=== PATIENT | female | born 1940 | race Caucasian/White ===

== ENCOUNTER 2019-05-25 19:50 | Emergency (ER) | payer MEDICARE, OTHER, SELFPAY ==
[2019-05-25 20:06] VITALS: BP 133/69; PULSE 71; RESP 15; TEMP 36.9; O2SAT 98; BMI 25.7
--- NOTE | 2019-05-25 20:08 | DI.RAD.S_ITS ---
PROCEDURE: XR KNEE LT 3V INDICATIONS: fall onto knees, joint line pain TECHNIQUE: 3 views of the knee were acquired. COMPARISON: [facility], CR, XR KNEE RT 3V, 05/25/2019, 20:04. FINDINGS: Bones: Diffuse osteopenia. No fractures or dislocations. No suspicious bony lesions. Soft tissues: Small joint effusion. No suspicious soft tissue calcifications. IMPRESSION: Diffuse osteopenia. No acute fracture or dislocation. Small joint effusion. If there is persistent clinical concern for occult fracture given adequate mechanism of injury, consider repeat imaging in 10-14 days. Dictated by: Jf rPice M.D. on 05/25/2019 at 20:43 Approved by: Jf Price M.D. on 05/25/2019 at 20:45
--- NOTE | 2019-05-25 20:08 | DI.RAD.S_ITS ---
PROCEDURE: XR KNEE RT 3V INDICATIONS: fall onto knees, joint line pain TECHNIQUE: 3 views of the knee were acquired. COMPARISON: None. FINDINGS: Bones: Diffuse osteopenia. No fractures or dislocations. No suspicious bony lesions. Soft tissues: No joint effusion. No suspicious soft tissue calcifications. IMPRESSION: Diffuse osteopenia. No acute fracture or dislocation. If there is persistent clinical concern for occult fracture given adequate mechanism of injury, consider repeat imaging in 10-14 days. Dictated by: Jf Price M.D. on 05/25/2019 at 20:42 Approved by: Jf Price M.D. on 05/25/2019 at 20:43
--- NOTE | 2019-05-25 20:11 | ED.FALL ---
HPI - Fall <Ivone Toth PA-C - Last Filed: 05/25/19 21:13> General Chief Complaint: Fall Stated Complaint: bilateral knee pain, mouth pain s/p GLF Time Seen by Provider: 05/25/19 20:08 Source: patient Mode of arrival: Wheelchair Limitations: no limitations History of Present Illness HPI Narrative: This 79-year-old female tripped on a carpet strip about an hour and a half prior to arrival. She pitched forward, falling onto both of her knees and hitting her front teeth (1 came out, another is loose). She denies any other injury, denies hitting her head, LOC, neck pain, other extremity pain. Her son was present and concurs with this. She states that her knees hurt right away and great difficulty bearing any weight due to the pain (she came in to the room in a wheelchair). She notes that she had some leftover Dilaudid following hip replacement but gave this away. Typically if she takes oral pain medication it is this or morphine, unable to tolerate hydrocodone or oxycodone which seemed to cause mental status changes. Related Data Home Medications Medication Instructions Recorded Confirmed ASPIRIN (Aspir-Low) 81 mg PO Q DAY #0 06/15/12 02/24/19 carvedilol [Coreg] 12.5 mg PO BID #0 06/15/12 02/24/19 losartan [Cozaar] 50 mg PO QDAY #0 06/15/12 02/24/19 rosuvastatin [Crestor] 40 mg PO QDAY #0 06/15/12 02/24/19 lorazepam [Ativan] 0.5 mg PO PRN #0 12/11/12 02/24/19 Previous Rx's Medication Instructions Recorded hydrocortisone 1 % topical cream 1 applictn TOP BID PRN #28 gram 02/24/19 morphine 15 mg PO Q8H #8 tab 05/25/19 Allergies Allergy/AdvReac Type Severity Reaction Status Date / Time azithromycin [AZITHROMYCIN] Allergy Unknown Verified 05/25/19 20:06 codeine [CODEINE] Allergy Unknown Verified 05/25/19 20:06 ADHESIVE TAPE Allergy Mild Uncoded 02/24/19 12:10 Review of Systems <Ivone Toth PA-C - Last Filed: 05/25/19 21:13> Review of Systems ROS Unobtainable: All systems reviewed & are unremarkable except as noted in HPI and below Patient History <Ivone Toth PA-C - Last Filed: 05/25/19 21:13> Medical History (Updated 05/25/19 @ 21:08 by Ivone Toth PA-C) CAD (coronary artery disease) (Chronic) HTN (hypertension) (Chronic) Hyperlipidemia (Chronic) Osteoarthritis (Chronic) Venous insufficiency of both lower extremities (Chronic) Surgical History (Updated 05/25/19 @ 20:18 by Ivone Toth PA-C) Hx of heart artery stent (Resolved) Status post total hip replacement, right (Resolved) Social History (Updated 05/25/19 @ 20:17 by Ivone Toth PA-C) Smoking Status: Unknown if ever smoked Smoking Status: Unknown if ever smoked alcohol intake frequency: holidays/special occasions only Substance Use Type: does not use Exam <Ivone Toth PA-C - Last Filed: 05/25/19 21:13> Narrative Exam Narrative: GENERAL APPEARANCE: Patient sitting comfortably on stretcher, in no distress. HEENT: No facial or scalp lesions or ecchymoses, EOMI, right central incisor is mostly broken, partial to that the base still visible, oozing from that site, L. incisor loose, partially avulsed LUNGS: Clear to auscultation bilaterally. HEART: Regular rate and rhythm without murmur, normal S1, S2, no S3 or S4. EXTREMITIES: mild pedal edema, + varicosities, pedal pulses intact, no cyanosis NEUROLOGIC: Alert and oriented, normal speech and coordination. MS: Trace effusion bilateral knees, tender across the joint lines. Full flexion/extension with tenderness at endpoints. Full active motion of the ankles without tenderness. No tenderness over the tib-fib areas, ankles. No tenderness over the hips or thighs. DERM: eccymoses bilateral knees Initial Vital Signs Initial Vital Signs: Vital Signs Temperature 98.5 F 05/25/19 20:06 Pulse Rate 71 05/25/19 20:06 Respiratory Rate 15 05/25/19 20:06 Blood Pressure 133/69 05/25/19 20:06 Pulse Oximetry 98 05/25/19 20:06 <Alyx Orr DO - Last Filed: 05/26/19 00:24> Initial Vital Signs Initial Vital Signs: Vital Signs Temperature 98.5 F 05/25/19 20:06 Pulse Rate 71 05/25/19 20:06 Respiratory Rate 15 05/25/19 20:06 Blood Pressure 133/69 05/25/19 20:06 Pulse Oximetry 98 05/25/19 20:06 Course <Ivone Toth PA-C - Last Filed: 05/25/19 21:13> Orders Ordered: ED Orders 05/25/19 20:08 XR knee LT 3V Stat XR knee RT 3V Stat Discontinued Medications Morphine Sulfate (Morphine Ir) 30 mg PO Q6HR PRN PRN Reason: Pain, Severe (7-10) Last Admin: 05/25/19 21:13 Dose: 30 mg Documented by: REGINE Vital Signs Vital signs: Vital Signs - 8 hr 05/25/19 20:06 05/25/19 21:25 Temperature 98.5 F Pulse Rate 71 73 Respiratory Rate 15 16 Blood Pressure 133/69 113/96 H Pulse Oximetry 98 99 <Alyx Orr DO - Last Filed: 05/26/19 00:24> Orders Ordered: ED Orders 05/25/19 20:08 XR knee LT 3V Stat XR knee RT 3V Stat Discontinued Medications Morphine Sulfate (Morphine Ir) 30 mg PO Q6HR PRN PRN Reason: Pain, Severe (7-10) Last Admin: 05/25/19 21:13 Dose: 30 mg Documented by: REGINE Vital Signs Vital signs: Vital Signs - 8 hr 05/25/19 20:06 05/25/19 21:25 Temperature 98.5 F Pulse Rate 71 73 Respiratory Rate 15 16 Blood Pressure 133/69 113/96 H Pulse Oximetry 98 99 MDM - Fall <Ivone Toth PA-C - Last Filed: 05/25/19 21:13> Imaging Data R. and L. knees: Radiologist's impression: [address] [address] XRay Report Signed Patient: Meka Shahid MMR#: [id number] : 1940Acct:[id number] Age/Sex: 79 / FDate of Service: 05/25/19 Loc: ED Accession Number: [id number] Procedure: XR knee RT 3V Ordering Provider: Ivone Toth P.A-C PROCEDURE: XR KNEE RT 3V INDICATIONS: fall onto knees, joint line pain TECHNIQUE: 3 views of the knee were acquired. COMPARISON: None. FINDINGS: Bones: Diffuse osteopenia. No fractures or dislocations. No suspicious bony lesions. Soft tissues: No joint effusion. No suspicious soft tissue calcifications. IMPRESSION: Diffuse osteopenia. No acute fracture or dislocation. If there is persistent clinical concern for occult fracture given adequate mechanism of injury, consider repeat imaging in 10-14 days. Dictated by: Jf Price M.D. on 05/25/2019 at 20:42 Approved by: Jf Price M.D. on 05/25/2019 at 20:43 Meka Shahid 79 F [address] [address] XRay Report Signed Patient: Meka Shahid MMR#: [id number] : 1940Acct:[id number] Age/Sex: 79 / FDate of Service: 05/25/19 Loc: ED Accession Number: [id number] Procedure: XR knee LT 3V Ordering Provider: Ivone Toth P.A-C PROCEDURE: XR KNEE LT 3V INDICATIONS: fall onto knees, joint line pain TECHNIQUE: 3 views of the knee were acquired. COMPARISON: [facility], , XR KNEE RT 3V, 05/25/2019, 20:04. FINDINGS: Bones: Diffuse osteopenia. No fractures or dislocations. No suspicious bony lesions. Soft tissues: Small joint effusion. No suspicious soft tissue calcifications. IMPRESSION: Diffuse osteopenia. No acute fracture or dislocation. Small joint effusion. If there is persistent clinical concern for occult fracture given adequate mechanism of injury, consider repeat imaging in 10-14 days. Dictated by: Jf Price M.D. on 05/25/2019 at 20:43 Approved by: Jf Price M.D. on 05/25/2019 at 20:45 Discharge Plan Departure Patient Disposition: Home Clinical Impression: Contusion of right knee, initial encounter, Contusion of left knee, initial encounter Discharge Date/Time: 05/25/19 21:25 Instructions: DI for Knee Pain Activity Restrictions/Additional Instructions: Please rest your knees. Use the Jorge wraps as needed for comfort, and use your walker for support. Gentle walking on flat ground is okay, and you can gradually increase this as you feel better. I have given you a prescription for a little bit of morphine should you need any more pain medication over the next day or 2. You do not have to fill the prescription if you are better tomorrow. Please use ice, and you can use topical rubs or lidocaine patches [id number] as well. As we talked about, you need to have repeat x-ray in 7-10 days if not feeling better. You should be seen right away if any acutely worsening symptoms. I suspect that your partially broken tooth may not be fixable, but keep it in milk on ice for tonight just in case it is helpful for the dentist. Avoid manipulating the tooth that is partially attached, as I think the dentist may be able to fix that. Please call 1st thing tomorrow morning and let them know you are in the emergency room and we advised you to be seen in the morning to see if the tooth could be fixed. Keep pressure on the bleeding area with a little gauze. Please call the hospital enrollment management coordinator tomorrow as well, at [phone], and let them know you need help with finding a local primary care provider. Let them know you were seen in the ED and we would like you to have a follow-up next week. You can also check with [facility] if you wish since you are already established with Dr. Nguyễn Prescriptions: New morphine 30 mg tablet 15 mg PO Q8H Qty: 8 RF: 0 No Action hydrocortisone [Anti-Itch (HC)] 1 % cream 1 applictn TOP BID PRN (Reason: rash) Qty: 28 RF: 0 losartan [Cozaar] 50 MG tablet 50 mg PO QDAY Qty: 0 RF: 0 carvedilol [Coreg] 12.5 MG tablet 12.5 mg PO BID Qty: 0 RF: 0 rosuvastatin [Crestor] 40 MG tablet 40 mg PO QDAY Qty: 0 RF: 0 ASPIRIN (Aspir-Low) 81 mg PO Q DAY Qty: 0 RF: 0 lorazepam [Ativan] 0.5 MG tablet 0.5 mg PO PRN Qty: 0 RF: 0 Referrals: Jon Aggarwal [Other] Reyes Nguyễn MD [Physician] -
[2019-05-25] MEDS: MORPHINE IR 30 MG PO (21:13)
[2019-05-25 21:25] VITALS: BP 113/96; PULSE 73; RESP 16; O2SAT 99
== END 2019-05-25 21:25 | disposition home or self-care (01) ==
PROVIDERS: Emergency Provider Internal Medicine; Family Provider Orthopaedic Surgery; PCP Orthopaedic Surgery
DX: S80.01XA Contusion of right knee, initial encounter (principal); M25.562 Pain in left knee; S02.5XXA Fracture of tooth (traumatic), initial encounter for closed fracture; K08.89 Other specified disorders of teeth and supporting structures; W18.30XA Fall on same level, unspecified, initial encounter
CPT/HCPCS: 73562; 99283

== ENCOUNTER → 2019-08-20 10:39 | Outpatient (CLI) | payer MEDICARE, OTHER, SELFPAY ==
[2019-08-20 11:37] LABS: Alanine Aminotransferase 15 IU/L (<35); Albumin 4.4 g/dL (3.5-5.0); Albumin Globulin Ratio 1.5 (1.0-2.8); Alkaline Phosphatase 96 U/L (38-126); Aspartate Aminotransferase 27 IU/L (14-36); BUN Creatinine Ratio 12.3 (6-22); Bilirubin Total 0.8 mg/dL (0.2-1.3); Blood Urea Nitrogen 10 mg/dL (7-17); Calcium 9.7 mg/dL (8.4-10.2); Carbon Dioxide 28 mmol/L (22-32); Chloride 97 mmol/L (98-107); Cholesterol 168 mg/dL (140-199); Estimated Glomerular Filt Rate > 60.0 mL/min (>60); Globulin 2.9 g/dL (1.7-4.1); Glucose 99 mg/dL (80-110); HDL Cholesterol 80 mg/dL (40-60); HEMOLYSIS < 15 (0-50); LDL Cholesterol Calculated 67 mg/dL (<100); Potassium 4.8 mmol/L (3.4-5.1); Sodium 133 mmol/L (137-145); Total Protein 7.3 g/dL (6.3-8.2); Triglycerides 104 mg/dL (35-150)
[2019-08-20 11:54] LABS: Vitamin D 25 Hydroxy (D3) 59.5 ng/mL (30.0-100.0)
== END ==
PROVIDERS: Family Provider Orthopaedic Surgery; PCP Family Medicine; Referring Provider Family Medicine; Visit Provider Family Medicine
DX: E55.9 Vitamin D deficiency, unspecified (principal); I10 Essential (primary) hypertension; E78.00 Pure hypercholesterolemia, unspecified
CPT/HCPCS: 36415; 80053; 80061; 82306

== ENCOUNTER → 2020-04-04 14:48 | Outpatient (CLI) | payer MEDICARE, OTHER, SELFPAY ==
--- NOTE | 2020-04-04 14:52 | DI.ECHO.S_ITS ---
[place] [facility]---------+ [facility] +---------+ : : [address] : : : : [phone] : : : : Phone: [phone]---------+ Echocardiogram Report + + :Name: GOMEZ HOLLINS Study Date: 04/04/2020 Height: 61 in : :[facility] Weight: 143 lb : : Gender: Female BSA: 1.6 m2 : :: 1940 Age: 80 yrs BP: 146/67 mmHg: :Reason For Study: LOCALIZED EDEMA : :Ordering Physician: GIAN, : :AJIT Performed By: Haritha Merida : :Referring: AJIT SPRINGER : + + Interpretation Summary The left ventricle is normal in size and wall thickness. The ejection fraction is estimated to be 60-65%. The right ventricle is normal in size and function. There is mild mitral regurgitation. The IVC is of normal diameter and collapses greater than 50% with a sniff. This suggests a low right atrial pressure of 3 mm Hg. Procedure: A two-dimensional transthoracic echocardiogram with color flow and Doppler was performed. The study quality was technically adequate. There is no prior echocardiogram noted for this patient. The patient was in sinus bradycardia with heart rates between 52-57 bpm during the exam. Left Ventricle: The left ventricle is normal in size and wall thickness. There is no thrombus. The ejection fraction is estimated to be 60-65%. There are no focal wall motion abnormalities. Diastolic parameters suggest a relaxation abnormality of the left ventricle, consistent with probable normal filling pressures. Right Ventricle: The right ventricle is normal in size and function. Atria: The left atrial size is normal. Right atrial size is normal. There is no Doppler evidence for an interatrial shunt. Mitral Valve: There is mild mitral annular calcification. There is mild mitral regurgitation. The mitral regurgitant jet is eccentrically directed. Aortic Valve: The aortic valve is trileaflet. The aortic valve opens well. The aortic valve is slightly calcified. There is no aortic valve stenosis. No aortic regurgitation is present. Tricuspid Valve: The tricuspid valve is normal in structure and function. There is trace tricuspid regurgitation. Pulmonary artery pressures cannot be estimated because of the lack of a measurable TR jet velocity but the IVC suggests a CVP of around 3 mmHg. Pulmonic Valve: The pulmonic valve leaflets are thin and pliable; valve motion is normal. There is no pulmonic valvular regurgitation. Great Vessels: The aortic root is normal size. The dimensions of the ascending aorta are normal. The IVC is of normal diameter and collapses greater than 50% with a sniff. This suggests a low right atrial pressure of 3 mm Hg. Pericardium/ Pleura There is no pericardial effusion. There is no pleural effusion. MMode/2D Measurements & Calculations LVIDd: 4.2 cm LVOT diam: 2.0 cm LVIDs: 3.1 cm Ao root diam: 3.2 cm FS: 27.1 % asc Aorta Diam: 2.6 cm EPSS: 0.54 cm Ao Arch Diam (Prox Trans): 2.3 cm IVSd: 0.90 cm LVPWd: 0.89 cm LV marin. diameter/BSA (cm/m^2): 2.6 LV sys. diameter/BSA (cm/m^2): 1.9 LA A2 area: 16.9 cm2 RA long axis: 4.8 cm LA A4 area: 14.6 cm2 RA area: 13.6 cm2 LA length (vol): 5.3 cm RA vol: 32.5 ml LA vol: 39.8 ml RA : 19.8 ml/m2 LA vol index: 24.3 ml/m2 IVC diam: 1.4 cm RVD1 (basal): 2.9 cm TAPSE: 2.3 cm Doppler Measurements & Calculations Ao V2 max: 142.4 cm/sec LVOT Max Bhaskar: 77.4 cm/sec Ao V2 mean: 96.0 cm/sec LV V1 max P.4 mmHg Ao max P.1 mmHg LV V1 VTI: 21.0 cm Ao mean P.2 mmHg SILVERIO(I,D): 2.0 cm2 Ao V2 VTI: 33.6 cm SILVERIO(V,D): 1.7 cm2 sev ratio: 0.62 SILVERIO indexed to BSA (cm^2/m^2): 1.2 MV E max bhaskar: 83.8 cm/sec PA V2 max: 67.5 cm/sec MV A max bhaskar: 88.0 cm/sec PA V2 mean: 41.4 cm/sec MV E/A: 0.95 PA mean P.82 mmHg Med Peak E' Bhaskar: 6.8 cm/sec PA pr(Accel): 19.1 mmHg E/E' med: 12.3 Lat Peak E' Bhaskar: 8.4 cm/sec E/E' lat: 10.0 E/e' average: 11.1 MV dec time: 0.23 sec SV(LVOT): 66.5 ml Reading Physician:05:51 PM
== END ==
PROVIDERS: Family Provider Orthopaedic Surgery; PCP Family Medicine; Referring Provider Internal Medicine Cardiovascular Disease; Visit Provider Internal Medicine Cardiovascular Disease
DX: I34.0 Nonrheumatic mitral (valve) insufficiency (principal)
CPT/HCPCS: 93306

== ENCOUNTER → 2020-04-29 13:03 | Outpatient (CLI) | payer MEDICARE, OTHER, SELFPAY ==
[2020-04-29 15:04] LABS: COVID19 -Nasal RAPID Negative (Negative)
== END ==
PROVIDERS: Family Provider Orthopaedic Surgery; PCP Family Medicine; Visit Provider Physician Assistant
DX: Z11.59 Encounter for screening for other viral diseases (principal)
CPT/HCPCS: 87635

== ENCOUNTER → 2020-05-02 10:06 | Outpatient (CLI) | payer MEDICARE, OTHER, SELFPAY ==
--- NOTE | 2020-05-02 18:27 | DI.NM.S_ITS ---
DATE OF SERVICE: PROCEDURE: Pharmacological perfusion study. DATE: 05/02/2020. INDICATIONS: Coronary artery disease with history of LAD and RCA stenting, hypertension, hyperlipidemia. RADIOPHARMACEUTICAL: 25.5 millicurie of technetium-99m Myoview IV was injected at stress and 11.9 millicurie technetium-99m Myoview IV was injected at rest. CARDIAC STRESS: The patient underwent Lexiscan perfusion study under the supervision of an attending staff as per standard protocol. She remained hemodynamically stable. No anginal symptoms. Baseline EKG revealed sinus rhythm. During stress, no convincing ischemic changes or significant arrhythmias seen. RAW DATA: There was breast shadow seen. GATED STUDY: Stress LV ejection fraction 84%. Resting end-diastolic volume 57 mL. No obvious wall motion abnormalities. TID ratio 1.0, which is within normal limits. Lung/heart ratio 0.22, which is within normal limits. MYOCARDIAL PERFUSION SCAN: Stress supine and resting supine images revealed minimally decreased perfusion of distal anterior wall, which got significantly improved during prone images. There was no convincing ischemia or infarction pattern seen. CONCLUSION: I will call this study likely a normal myocardial perfusion study with evidence of breast tissue attenuation artifact which got improved during prone images. Overall, this is a low-risk myocardial perfusion scan. Meka Shahid - SAFIA/shannon/danie doc#: [id number]/job#: [id number] dd: 05/02/2020 17:41:00 dt: 05/02/2020 18:14:00 DICTATING MD/COPIES TO: Reyes Nguyễn MD COPIES MNE: CHELI;
== END ==
PROVIDERS: Family Provider Orthopaedic Surgery; PCP Family Medicine; Referring Provider Internal Medicine Cardiovascular Disease; Visit Provider Internal Medicine Cardiovascular Disease
DX: I25.10 Atherosclerotic heart disease of native coronary artery without angina pectoris (principal); I10 Essential (primary) hypertension; E78.5 Hyperlipidemia, unspecified; Z95.5 Presence of coronary angioplasty implant and graft
CPT/HCPCS: 78452; 93017; A9502; J2785

== ENCOUNTER → 2020-07-03 10:21 | Outpatient (CLI) | payer MEDICARE, OTHER, SELFPAY ==
--- NOTE | 2020-07-03 10:23 | DI.RAD.S_ITS ---
PROCEDURE: XR LUMBAR SPINE 2-3V INDICATIONS: Progression localized lower back pain over the past few weeks TECHNIQUE: 3 views of the lumbar spine were acquired. COMPARISON: None. FINDINGS: Bones: Diffuse osteopenia. Multilevel degenerative endplate sclerosis and spurring. Diffuse facet arthropathy. Grade 1 anterolisthesis of L4 on L5. Severe narrowing of the L3-L4 disc space. Moderate narrowing of the L4-L5 and L5-S1 disc space. Mild dextrocurvature. Severe left hip joint degeneration with [id number] appearance. Right hip arthroplasty partially visualized. Soft tissues: Overlying bowel gas pattern is normal. No suspicious soft tissue calcifications. Scattered vascular calcifications seen in the aorta. IMPRESSION: Lumbar spondylosis and facet arthropathy. Multilevel spondylolisthesis as above. Mild dextrocurvature Dictated by: Casa Mackay M.D. on 07/03/2020 at 12:37 Approved by: Casa Mackay M.D. on 07/03/2020 at 12:39
== END ==
PROVIDERS: Family Provider Orthopaedic Surgery; PCP Family Medicine; Referring Provider Family Medicine; Visit Provider Family Medicine
DX: M47.816 Spondylosis without myelopathy or radiculopathy, lumbar region (principal)
CPT/HCPCS: 72100

== ENCOUNTER 2020-09-07 10:30 | Outpatient (RCR) | payer MEDICARE, OTHER, SELFPAY ==
--- NOTE | 2020-08-23 12:00 | PT.OPPOC ---
Physical, Occupational & Speech Therapy At [facility] Current Diagnoses Other chronic pain (08/23/20) Low back pain (08/23/20) Difficulty in walking, not elsewhere classified (08/23/20) Visit Care Team Role Provider Type Valentín Luis DO Attending Provider Physician Primary Care Provider Referring Provider Specialty: [facility] Address: [address] [place] [address], [facility] Email: [email or web address] Plan Of Care PT-OP-T Assessment and Plan Start: 08/23/20 09:00 Freq: Status: Active Protocol: Document 08/23/20 12:00 AW (Rec: 08/24/20 11:49 AW [id number]) Physical Therapy Assessment Rehab Potential Rehabilitation Potential Good Evaluation Complexity Number of Personal Factors/Comorbidities 1-2 Number of Body Systems Impaired 1-2 Clinical Presentation at Evaluation Stable Impairments Impairments Activity Tolerance,Balance, Edema,Functional Activities, Functional Mobility,Gait,Pain, Posture,ROM,Soft Tissue Mobility,Strength,Transfers Goals Three Impairment standing tolerance Short Term Goal (STG) Pt will tolerate standing 15 minutes without increase in baseline pain. STG Duration 6 weeks - 10/04/20 [employer] Goal (LTG) Pt will cook helper fruit with >15 minutes standing without increase in baseline pain. LTG Duration 3 months - 11/23/20 Two Impairment strength Short Term Goal (STG) Pt will improve hip extension strength to 4/5 bilaterally STG Duration 6 weeks - 10/04/20 [employer] Goal (LTG) Pt will have 4+/5 hip extension strength for improved gait mechanics. LTG Duration 3 months - 11/23/20 One Impairment Pt lacks HEP Short Term Goal (STG) Pt will be independent with HEP for support of therapy services provided in clinic STG Duration 6 weeks - 10/04/20 [employer] Goal (LTG) Pt will participate in home walking program to maintain therapy gains LTG Duration 3 months - 11/23/20 Assessment Summary Assessment Meka is an 80 yo woman seen in outpatient PT with complaints of low back pain and left hip pain. She has a history of injurious falls but reports no falls in the past one year. Pt presents with hip range of motion and strength deficits which are affecting her gait and increasing her fall risk. She will benefit from skilled PT to address these deficits for pain reduction and improvement in her ability to ambulate safely, reducing her risk of falls. Physical Therapy Plan Frequency and Duration Frequency of Treatment 2x/Week Duration of Treatment 3 months Plan of Care Start Date 08/23/20 Plan of Care End Date 11/23/20 Therapeutic Interventions Therapeutic Interventions Balance Training,Gait Training ,Home Exercise Program,Joint Mobilizations,Manual Therapy, Neuromuscular Re-education, Patient/Caregiver Education, Self-Care/Home Management,Soft Tissue Mobilization,Taping, Therapeutic Activities, Therapeutic Exercises Modalities Cold Pack/Ice Massage,Electric Stimulation,Hot Packs Next Visit Focus/Plan Next Note Type Treatment Note Next Visit Plan assess balance and gait speed with standardized testing; consider TUG; hip mobility and strength Plan of Care Dates Plan of Care Start Date 08/23/20 Plan of Care End Date 11/23/20 Electronically Signed by: Mini Jean PT 08/24/20 [id number] Please Sign and Return: I have reviewed this Plan of Care and certify that the skilled therapy services above are required to meet the patient?s needs. Physician Signature Date Printed Name and Credentials Clinical Instructor Signature Printed Name and Credentials
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
== END 2021-01-25 07:53 | disposition home or self-care (01) ==
LOC: PHYS 10:30
PROVIDERS: PCP Family Medicine; Referring Provider Family Medicine; Visit Provider Family Medicine
DX: M54.5 Low back pain (principal); G89.29 Other chronic pain; R26.2 Difficulty in walking, not elsewhere classified
CPT/HCPCS: 97010; 97110; 97140; 97161

== ENCOUNTER 2020-09-09 12:16 | Emergency (ER) | payer MEDICARE, OTHER, SELFPAY ==
[2020-09-09 12:25] VITALS: BP 208/86; PULSE 72; RESP 13; TEMP 35.9; O2SAT 96; BMI 27.0
--- NOTE | 2020-09-09 13:58 | ED_ITS ---
HPI - Back Pain/Injury General Chief Complaint: Back Pain/Injury Stated Complaint: lower back pain Time Seen by Provider: 09/09/20 13:57 Source: patient Mode of arrival: Ambulatory Limitations: no limitations History of Present Illness HPI Narrative: Patient is an 80-year-old female who presents with ongoing back pain. She has had chronic back pain to be seen by her PCP for this in June she had an x-ray at that time and placed on methocarbamol and ibuprofen. She started physical therapy this week and has had increasing pain. She says her pain is out of control is in her right flank it is not radiating down her legs or to her abdomen. She denies any fever chills painful or frequent urination. She denies any urinary incontinence. She says the ibuprofen just does not seem to be helping her pain. MD Complaint: back pain Onset (ago): week(s) Duration: constant Location: lumbar spine Severity: moderate Quality: sharp and stabbing Radiation: none Exacerbating factors: movement and sitting upright Related Data Home Medications Medication Instructions Recorded Confirmed ASPIRIN (Aspir-Low) 81 mg PO Q DAY #0 06/15/12 05/31/19 carvedilol [Coreg] 12.5 mg PO BID #0 06/15/12 05/31/19 losartan [Cozaar] 50 mg PO QDAY #0 06/15/12 05/31/19 rosuvastatin [Crestor] 40 mg PO QDAY #0 06/15/12 05/31/19 Previous Rx's Medication Instructions Recorded hydrocortisone 1 % topical cream 1 applictn TOP BID PRN #28 gram 02/24/19 naproxen 500 mg tablet 500 mg PO BID #30 tab 05/26/19 ibuprofen 600 mg tablet 600 mg PO TID PRN #30 tab 07/03/20 lorazepam 0.5 mg tablet 0.5 mg PO PRN #30 tab 07/03/20 methocarbamol 500 mg tablet 500 mg PO TID PRN #20 tab 07/03/20 Disabled Parking Permit #1 ea 07/07/20 ketorolac 10 mg PO TID PRN #10 tab 09/09/20 Allergies Allergy/AdvReac Type Severity Reaction Status Date / Time bee venom protein (honey bee) Allergy Severe Swelling Verified 09/09/20 12:32 hydromorphone Allergy Severe [place] like Verified 09/09/20 12:32 I was having a heart attack adhesive tape Allergy Mild Verified 09/09/20 14:07 azithromycin [AZITHROMYCIN] Allergy Unknown Verified 09/09/20 12:32 codeine [CODEINE] Allergy Unknown Verified 09/09/20 12:32 morphine Allergy Verified 09/09/20 12:32 Review of Systems Review of Systems ROS Unobtainable: All systems reviewed & are unremarkable except as noted in HPI and below Constitutional Constitutional: Denies chills, Denies fever(s), Denies lethargy and Denies weakness Eyes Eyes: Denies change in vision, Denies eye discharge, Denies irritation and Denies loss of vision Cardiovascular Cardiovascular: Denies chest pain, Denies irregular heart rhythm, Denies lightheadedness, Denies palpitations, Denies dyspnea, Denies dyspnea on exertion and Denies orthopnea Respiratory Respiratory: Denies cough, Denies dyspnea, Denies dyspnea on exertion and Denies wheezing Gastrointestinal Gastrointestinal: Denies abdominal pain, Denies change in bowel habits, Denies diarrhea, Denies nausea and Denies vomiting Musculoskeletal Musculoskeletal: Reports as per HPI and Reports back pain Integumentary/Breasts Skin/Breast: Denies pruritus, Denies erythema, Denies rash and Denies wounds Neurologic Neurologic: Denies loss of vision and Denies weakness Endocrine Endocrine: Denies palpitations Allergic/Immunologic Allergic/Immunologic: Denies wheezing Patient History Medical History CAD (coronary artery disease) HTN (hypertension) Hyperlipidemia Low back pain Osteoarthritis Venous insufficiency of both lower extremities Surgical History Hx of heart artery stent Status post total hip replacement, right Social History Smoking Status: Former smoker Smoking Status: Former smoker alcohol intake frequency: 0-2 drinks per day Substance Use Type: does not use Exam Initial Vital Signs Initial Vital Signs: Vital Signs Temperature 96.7 F L 09/09/20 12:25 Pulse Rate 72 09/09/20 12:25 Respiratory Rate 13 09/09/20 12:25 Blood Pressure 208/86 H 09/09/20 12:25 Pulse Oximetry 96 09/09/20 12:25 GENERAL: Alert pleasant 80-year-old female appears to be uncomfortable she was sitting on the gurney is now standing. HEENT: Head atraumatic,EOMI, pupils reactive, face symmetric, moist mucous membranes CARDIOVASCULAR: Regular rate and rhythm without murmurs, rubs or gallops. RESPIRATORY: Breath sounds equal bilaterally, no wheezes rales or rhonchi. ABDOMEN: Soft, nontender. Normoactive bowel sounds all 4 quadrants. No guarding or rebound. : Mild right CVA tenderness EXTREMITIES: Normal range of motion, no clubbing or edema. Neurovascularly intact NEUROLOGICAL: Alert and oriented x4.Normal gait and speech. Manager Local strength equal bilaterally SKIN: Warm, dry, no laceration, no petechiae, no rashes or lesions. Course Orders Ordered: ED Orders 09/09/20 14:05 CT kidney ureter bladder (KUB) Stat 09/09/20 16:07 Urinalysis Screen (Dip Only) Stat Discontinued Medications Ketorolac Tromethamine (Ketorolac 60 Mg/2 Ml Vial) 30 mg IM NOW ONE Stop: 09/09/20 14:06 Last Admin: 09/09/20 14:20 Dose: 30 mg Documented by: DAVE Vital Signs Vital signs: Vital Signs - 8 hr 09/09/20 12:25 09/09/20 16:39 Temperature 96.7 F L Pulse Rate 72 74 Respiratory Rate 13 16 Blood Pressure 208/86 H 174/80 H Pulse Oximetry 96 97 MDM - Back Pain/Injury Lab Data Attestation: I reviewed the patient's lab results. Labs: Lab Results 09/09/20 Range/Units 16:07 Urine Color Yellow Urine Appearance Clear Urine pH 6.0 (4.5-8.0) Ur Specific [place] 1.010 (1.000-1.035) Urine Protein 1+ H (Negative) Urine Glucose (UA) Negative (Negative) g/dL Urine Ketones Trace H (NEGATIVE) Urine Occult Blood Trace-intact (Negative) Urine Nitrate Negative (Negative) Urine Bilirubin Negative (NEGATIVE) Urine Urobilinogen 0.2 (0.2) E.U./dL Ur Leukocyte Esterase Negative (NEGATIVE) Imaging Data CT scan - abdomen/pelvis: Radiologist's Impression: PROCEDURE: CT KIDNEY URETER BLADDER (KUB) INDICATIONS: right flank pain, chronic back pain TECHNIQUE: Noncontrast 5 mm thick sections acquired from the diaphragms to the symphysis. 5 mm thick coronal and sagittal reformats were then performed. For radiation dose reduction, the following was used: automated exposure control, adjustment of mA and/or kV according to patient size. COMPARISON: None. FINDINGS: Image quality: Excellent. Lung bases: Mild bibasilar dependent atelectasis is seen. Heart size is normal. Urinary system: Both kidneys are normal in size. No kidney stones. No gross hydronephrosis is seen. Nonspecific mild right perinephric fat stranding is noted. There is a 2 millimeter calcification seen in the region of distal right ureter series 2, image 64 concerning for distal right ureteral stone. No left-sided hydronephrosis or perinephric fat stranding. Left ureter is within normal limits. Numerous phleb oliths are seen in lower pelvis bilaterally. Bladder wall thickness is normal; no calcified bladder stones. Other solid organs: Liver is normal in size. Gallbladder is surgically absent. Pancreas is normal in contours. Spleen is normal in size. No adrenal nodules. Peritoneum and bowel: There is a small hiatal hernia. Unenhanced bowel loops demonstrate normal wall thickness and caliber. Extensive colonic diverticulosis is seen, no CT evidence of acute diverticulitis. No free fluid or free air . No abscess collection. Fecal stasis in the colon is noted extending to rectum. Nodes and vessels: No retroperitoneal or mesenteric adenopathy by size criteria. Aorta and inferior vena cava are normal in caliber. Moderate atherosclerotic calcifications throughout abdominal aorta is seen. Abdominal wall: No ventral hernias. Pelvis: No free pelvic fluid. No inguinal hernias or adenopathy. Bones: No suspicious bony lesions. Patient is status post right total hip ar throplasty with significant beam hardening artifact. Chronic appearing anterior wedge compression deformity at L3 level is seen with up to 40 percent loss of L3 vertebral body height anteriorly. There is suggestion of bilateral pars defect at L4 level with grade 1 anterolisthesis of L4 on L5. Degenerative endplate changes and bilateral facet arthrosis are noted throughout lumbar spine. IMPRESSION: 1. Finding is suggestive of at least partially obstructing 2 millimeter distal right ureteral stone with mild right perinephric fat stranding. No significant hydronephrosis is seen. No left-sided renal stone or hydronephrosis. Normal appearing left ureter. No gross abnormality is seen in urinary bladder. 2. Numerous phleboliths are noted in lower pelvis. 3. Small hiatal hernia. No bowel obstruction. No free fluid or free air. Colonic diverticulosis without evidence of acute diverticulitis. No free fluid or free air. 4. Degenerative disc disease in lumbar spine as above. Chronic appearing superior endplate compression deformity at L3 level. Grade 1 anterolisthesis of L4 on L5. Dictated by: George March M.D. on 09/09/2020 at 15:34 MDM Narrative Medical decision making narrative: Patient is found have a small 2 mm kidney stone. No sign of infection. Pain is slightly better after Toradol. Due to multiple allergies on able to have anything stronger. Discharge Plan Departure Patient Disposition: Home Clinical Impression: Kidney stone on left side Instructions: DI for Kidney Stones Activity Restrictions/Additional Instructions: *You have been diagnosed with left-sided kidney stone *What to do: You should pass this stone over the next several days. Whenever it moves you will feel pain. *Continue to take medications as directed--> SENT TO [facility] Ketorolac 10 mg every 8 hours do not combine with any other NSAIDs such as Motrin, ibuprofen, Aleve, naproxen, Advil etc Tylenol 650 mg every 4-6 hours if needed for eacl-ag-vzkdmeoo pain *Follow up with your primary care provider in 2-3 days *Return to ER if you should have worsening pain, fever or any new, worsening or concerning symptoms Prescriptions: New ketorolac 10 mg tablet 10 mg PO TID PRN (Reason: pain) Qty: 10 RF: 0 No Action hydrocortisone [Anti-Itch (HC)] 1 % cream 1 applictn TOP BID PRN (Reason: rash) Qty: 28 RF: 0 losartan [Cozaar] 50 MG tablet 50 mg PO QDAY Qty: 0 RF: 0 carvedilol [Coreg] 12.5 MG tablet 12.5 mg PO BID Qty: 0 RF: 0 rosuvastatin [Crestor] 40 MG tablet 40 mg PO QDAY Qty: 0 RF: 0 ASPIRIN (Aspir-Low) 81 mg PO Q DAY Qty: 0 RF: 0 (DME) Disabled Parking Permit See Rx Instructions .ROUTE .MEDSUPPLY Qty: 1 RF: 0 naproxen [Naprosyn] 500 mg tablet 500 mg PO BID Qty: 30 RF: 0 ibuprofen 600 mg tablet 600 mg PO TID PRN (Reason: pain) Qty: 30 RF: 0 methocarbamol 500 mg tablet 500 mg PO TID PRN (Reason: muscle spasm) Qty: 20 RF: 0 lorazepam [Ativan] 0.5 mg tablet 0.5 mg PO PRN Qty: 30 RF: 2 Referrals: Valentín Luis DO [Primary Care Provider] -
--- NOTE | 2020-09-09 14:05 | DI.CT.S_ITS ---
PROCEDURE: CT KIDNEY URETER BLADDER (KUB) INDICATIONS: right flank pain, chronic back pain TECHNIQUE: Noncontrast 5 mm thick sections acquired from the diaphragms to the symphysis. 5 mm thick coronal and sagittal reformats were then performed. For radiation dose reduction, the following was used: automated exposure control, adjustment of mA and/or kV according to patient size. COMPARISON: None. FINDINGS: Image quality: Excellent. Lung bases: Mild bibasilar dependent atelectasis is seen. Heart size is normal. Urinary system: Both kidneys are normal in size. No kidney stones. No gross hydronephrosis is seen. Nonspecific mild right perinephric fat stranding is noted. There is a 2 millimeter calcification seen in the region of distal right ureter series 2, image 64 concerning for distal right ureteral stone. No left-sided hydronephrosis or perinephric fat stranding. Left ureter is within normal limits. Numerous phleboliths are seen in lower pelvis bilaterally. Bladder wall thickness is normal; no calcified bladder stones. Other solid organs: Liver is normal in size. Gallbladder is surgically absent. Pancreas is normal in contours. Spleen is normal in size. No adrenal nodules. Peritoneum and bowel: There is a small hiatal hernia. Unenhanced bowel loops demonstrate normal wall thickness and caliber. Extensive colonic diverticulosis is seen, no CT evidence of acute diverticulitis. No free fluid or free air . No abscess collection. Fecal stasis in the colon is noted extending to rectum. Nodes and vessels: No retroperitoneal or mesenteric adenopathy by size criteria. Aorta and inferior vena cava are normal in caliber. Moderate atherosclerotic calcifications throughout abdominal aorta is seen. Abdominal wall: No ventral hernias. Pelvis: No free pelvic fluid. No inguinal hernias or adenopathy. Bones: No suspicious bony lesions. Patient is status post right total hip arthroplasty with significant beam hardening artifact. Chronic appearing anterior wedge compression deformity at L3 level is seen with up to 40 percent loss of L3 vertebral body height anteriorly. There is suggestion of bilateral pars defect at L4 level with grade 1 anterolisthesis of L4 on L5. Degenerative endplate changes and bilateral facet arthrosis are noted throughout lumbar spine. IMPRESSION: 1. Finding is suggestive of at least partially obstructing 2 millimeter distal right ureteral stone with mild right perinephric fat stranding. No significant hydronephrosis is seen. No left-sided renal stone or hydronephrosis. Normal appearing left ureter. No gross abnormality is seen in urinary bladder. 2. Numerous phleboliths are noted in lower pelvis. 3. Small hiatal hernia. No bowel obstruction. No free fluid or free air. Colonic diverticulosis without evidence of acute diverticulitis. No free fluid or free air. 4. Degenerative disc disease in lumbar spine as above. Chronic appearing superior endplate compression deformity at L3 level. Grade 1 anterolisthesis of L4 on L5. Dictated by: George March M.D. on 09/09/2020 at 15:34 Approved by: George March M.D. on 09/09/2020 at 15:39
[2020-09-09] MEDS: KETOROLAC 60 MG/2 ML VIAL 30 MG IM (14:20)
[2020-09-09 16:13] LABS: Appearance Urine UA CLEAR; Bilirubin Urine UA NEGATIVE (NEGATIVE); Color Urine UA YELLOW; Glucose Urine UA NEGATIVE (Negative); Ketones Urine UA TRACE (NEGATIVE); Leukocyte Esterase Urine UA NEGATIVE (NEGATIVE); Nitrite Urine UA NEGATIVE (Negative); Occult Blood Urine UA TRACE-INTACT (Negative); Protein Urine UA 1+ (Negative); Urobilinogen Urine UA 0.2 E.U./dL (0.2)
[2020-09-09 16:39] VITALS: BP 174/80; PULSE 74; RESP 16; O2SAT 97
== END 2020-09-09 16:40 | disposition home or self-care (01) ==
PROVIDERS: Emergency Provider Emergency Medicine; PCP Family Medicine
DX: N20.0 Calculus of kidney (principal)
CPT/HCPCS: 74176; 81003; 96372; 99283; J1885

== ENCOUNTER 2020-09-11 13:31 | Observation (INO) | payer MEDICARE, OTHER, SELFPAY ==
[2020-09-11] VITALS (18 sets, daily range): BP systolic 135–195; BP diastolic 59–98; PULSE 62–71; RESP 16–20; TEMP 36.2–36.8; O2SAT 95–97; BMI 26.4
[2020-09-11] MEDS: SODIUM CHLORIDE 0.9% 1,000 ML 1000 ML IV (14:07)
[2020-09-11] MEDS: ONDANSETRON 4 MG/2 ML INJ IV ×2 (14:08→21:58)
[2020-09-11 14:13] LABS: Add Manual Diff / Slide Review NO; Basophils Absolute Auto 0 /uL (0-100); Basophils Percent Auto 0.4 % (0-2); Eosinophils Absolute Auto 100 /uL (0-450); Eosinophils Percent Auto 0.9 % (2-4); Hemoglobin 11.7 g/dL (12.0-16.0); Lymphocytes Absolute Auto 1300 /uL (1100-4500); Lymphocytes Percent Auto 10.6 % (25-40); Mean Corpuscular HGB Conc 33.6 % (30-36); Mean Corpuscular Hemoglobin 32.9 PG (26-34); Monocytes Absolute Auto 800 /uL (0-900); Monocytes Percent Auto 6.4 % (3-14); Neutrophils Absolute Auto 10100 /uL (1500-7000); Neutrophils Percent Auto 81.7 % (50-75); Platelet Count 228 X10^3/uL (150-400); Red Blood Cell Count 3.57 X10^6/uL (4.0-5.2); Red Cell Distribution Width 12.4 % (11.6-14.8); White Blood Cell Count 12.4 X10^3/uL (4.5-11.0)
[2020-09-11 14:24] LABS: Prothrombin Time 10.9 SECONDS (10.1-12.7)
[2020-09-11 14:27] LABS: PTT Partial Thromboplastin Tim 29 SECONDS (26.4-36.2)
[2020-09-11 14:29] LABS: Alanine Aminotransferase 17 IU/L (<35); Albumin 4.2 g/dL (3.5-5.0); Albumin Globulin Ratio 1.4 (1.0-2.8); Alkaline Phosphatase 100 U/L (38-126); Aspartate Aminotransferase 29 IU/L (14-36); BUN Creatinine Ratio 18.7 (6-22); Blood Urea Nitrogen 17 mg/dL (7-17); Calcium 9.5 mg/dL (8.4-10.2); Carbon Dioxide 20 mmol/L (22-32); Chloride 89 mmol/L (98-107); Estimated Glomerular Filt Rate 59.5 mL/min (>60); Globulin 2.9 g/dL (1.7-4.1); Glucose 90 mg/dL (80-110); HEMOLYSIS < 15 (0-50); Lipase 51 U/L (23-300); Potassium 4.3 mmol/L (3.4-5.1); Sodium 120 mmol/L (137-145); Total Protein 7.1 g/dL (6.3-8.2)
--- NOTE | 2020-09-11 14:36 | ED_ITS ---
HPI - Abdominal Pain General Chief Complaint: Abdominal Pain Stated Complaint: KIDNEY STONE Time Seen by Provider: 09/11/20 14:36 Source: patient and family (son) Mode of arrival: Ambulatory Limitations: no limitations History of Present Illness HPI narrative: This is an 80-year-old female who comes to the emergency department with complaint of right flank/low back pain that has been present for several days. She was had back pain in the past and has been seen by her primary care starting in June. She was placed on methocarbamol and ibuprofen at that time and was seeing physical therapy. Her pain had been increasing. She states that she was discharged home with Toradol but she has been unable to tolerate orals and has been throwing up the last several days. Last time she was able to tolerate any food was yesterday. She has felt somewhat feverish and chilled. She states she has also felt shaky. She denies any chest pain or shortness of breath no headaches or neck pain. She denies any anterior abdominal pain and describes all her pain more on the right lower back a little bit radiating towards the left. She denies any dysuria, sense of frequency or incomplete emptying she denies any continence. Patient states she has also not been able to take her regular medications which include aspirin, Coreg, losartan and Crestor. She does have a history of a heart attack in the past and had st ent placed. He has also had a prior hip replacement. Patient is accompanied by her son. Related Data Home Medications Medication Instructions Recorded Confirmed ASPIRIN (Aspir-Low) 81 mg PO Q DAY #0 06/15/12 05/31/19 carvedilol [Coreg] 12.5 mg PO BID #0 06/15/12 05/31/19 losartan [Cozaar] 50 mg PO QDAY #0 06/15/12 05/31/19 rosuvastatin [Crestor] 40 mg PO QDAY #0 06/15/12 05/31/19 Previous Rx's Medication Instructions Recorded hydrocortisone 1 % topical cream 1 applictn TOP BID PRN #28 gram 02/24/19 naproxen 500 mg tablet 500 mg PO BID #30 tab 05/26/19 ibuprofen 600 mg tablet 600 mg PO TID PRN #30 tab 07/03/20 lorazepam 0.5 mg tablet 0.5 mg PO PRN #30 tab 07/03/20 methocarbamol 500 mg tablet 500 mg PO TID PRN #20 tab 07/03/20 Disabled Parking Permit #1 ea 07/07/20 ketorolac 10 mg PO TID PRN #10 tab 09/09/20 Allergies Allergy/AdvReac Type Severity Reaction Status Date / Time bee venom protein (honey bee) Allergy Severe Swelling Verified 09/11/20 14:00 hydromorphone Allergy Severe [place] like Verified 09/11/20 14:00 I was having a heart attack adhesive tape Allergy Mild Verified 09/11/20 14:00 azithromycin [AZITHROMYCIN] Allergy Unknown Verified 09/11/20 14:00 codeine [CODEINE] Allergy Unknown Verified 09/11/20 14:00 morphine Allergy Verified 09/11/20 14:00 Review of Systems Review of Systems ROS Unobtainable: All systems reviewed & are unremarkable except as noted in HPI and below Patient History Medical History CAD (coronary artery disease) HTN (hypertension) Hyperlipidemia Low back pain Osteoarthritis Venous insufficiency of both lower extremities Surgical History Hx of heart artery stent Status post total hip replacement, right Social History Smoking Status: Former smoker Smoking Status: Former smoker alcohol intake frequency: 0-2 drinks per day Substance Use Type: does not use Exam Narrative Exam Narrative: GEN: well nourished, well appearing female, alert and oriented x 3, patient appears to be in mild distress. Patient does seem mildly confused. She can give majority of her history but when asked if she has had back pain she denies it, when we discussed that she has been seen by her primary care for back pain she states that she does. Patient states she does feel a little bit off. HEENT: Atraumatic, pupils are equal round reactive to light, extraocular movements are intact. HEART: Regular rate and rhythm without murmur, clicks, rubs. No carotid bruits, pulses are equal in upper and lower extremities LUNGS:Lungs clear to auscultation, no wheezes, rales, crackles, chest moves symmetrically ABD:bowel sounds normal, soft, non-tender, no guarding, rebound, rigidity, no masses noted, no hepatosplenomegaly :No CVA tenderness BACK: No cervical, thoracic or lumbar vertebral point tenderness. Patient has mildly decreased range of motion. Patient does have increased pain rolling onto her side but is able to roll onto her side back onto the bed. Patient's gait is not tested. Muscle strength is 5/5 in lower extremities, normal dorsiflexion and plantarflexion bilaterally. dorsalis pedis and tibialis pulses are 2+ and lower extremities. Sensation is intact in the lower extremities. MSCL: Non-tender, no muscle atrophy NEURO:CN 2-12 intact, sensation normal SKIN: Rash, erythema or skin changes appreciated. Initial Vital Signs Initial Vital Signs: Vital Signs Temperature 98.2 F 09/11/20 13:37 Pulse Rate 66 09/11/20 13:37 Respiratory Rate 20 09/11/20 13:37 Blood Pressure 195/84 H 09/11/20 13:37 Pulse Oximetry 96 09/11/20 13:37 Scores GCS [place] coma scale eye opening: Spontaneous [place] coma scale verbal response: Confused (very mild confusion) [place] coma scale motor response: Obey commands [place] coma scale total score: 14 Course Orders Ordered: ED Orders 09/11/20 13:42 Complete Blood Count AUTO DIFF Stat Comprehensive Metabolic Panel Stat Lactate (Lactic Acid) Stat Lipase Stat Partial Thromboplastin Time Stat Prothrombin Time INR Stat Troponin & CK Cardiac Panel Stat 09/11/20 14:53 CT kidney ureter bladder (KUB) Stat 09/11/20 15:17 COVID19 - ADMIT ([employer] swab/PCR) Stat 09/11/20 15:20 Urine Microscopic Stat 09/11/20 16:10 EKG-12 Lead Stat 09/11/20 16:50 Blood Culture Stat Discontinued Medications Sodium Chloride (Normal Saline 0.9%) 1,000 mls @ 1,000 mls/hr IV BOLUS ONE Stop: 09/11/20 15:01 Last Admin: 09/11/20 14:07 Dose: 1,000 mls/hr Documented by: REGINE Morphine Sulfate (Morphine 2 Mg/Ml Inj) 2 mg IV NOW ONE Stop: 09/11/20 14:53 Last Admin: 09/11/20 14:57 Dose: 2 mg Documented by: REGINE Ondansetron HCl (Ondansetron 4 Mg/2 Ml Inj) 4 mg IV NOW ONE Stop: 09/11/20 14:03 Last Admin: 09/11/20 14:08 Dose: 4 mg Documented by: REGINE Reevaluation(s) Reevaluation #1: Patient updated the plan. She and her son are were waiting on her troponin and lactate and blood cultures will take several days to result. We did discuss her CT findings and unclear if her pain is secondary to her compression fracture. She is still having pain although she has improved so unlikely that she has passed a kidney stone. No obvious sign of infection in her urine although it was sent for microscopy. Cultures are pending. Time: 16:40 Consultations Consultation #1: Dr. Carmona had requested troponin, lactate and blood cultures the has patient does not have a kidney stone today and was questionable on her prior CT. And it is unclear why she is having her emesis. Patient's abdominal exam is benign. Her pain is in her back she does have some reproduction with movement but no palpable pain. She has been afebrile. She has been hypertensive but has not been able to keep her home medications down including her Coreg and losartan. Dr. Dickens accepted after lactate and troponin were negative. Blood cultures are pending. Patient is aware of current plan. Time: 17:09 Vital Signs Vital signs: Vital Signs - 8 hr 09/11/20 13:37 09/11/20 13:47 09/11/20 14:00 Temperature 98.2 F Pulse Rate 66 62 65 Respiratory Rate 20 Blood Pressure 195/84 H Pulse Oximetry 96 97 97 09/11/20 14:01 09/11/20 14:30 09/11/20 14:31 Temperature Pulse Rate 66 63 62 Respiratory Rate Blood Pressure 165/83 H Pulse Oximetry 97 97 97 09/11/20 15:00 09/11/20 15:01 09/11/20 15:30 Temperature Pulse Rate 69 65 64 Respiratory Rate Blood Pressure 172/74 H 170/98 H Pulse Oximetry 96 95 95 09/11/20 16:00 09/11/20 16:02 09/11/20 16:37 Temperature Pulse Rate 63 62 71 Respiratory Rate 16 Blood Pressure 176/74 H Pulse Oximetry 97 96 96 09/11/20 17:00 Temperature Pulse Rate 63 Respiratory Rate Blood Pressure Pulse Oximetry 97 MDM - Abdominal Pain Lab Data Attestation: I reviewed the patient's lab results. Result diagrams: 09/11/20 13:42 09/11/20 13:42 Labs: Lab Results 09/11/20 09/11/20 09/11/20 Range/Units 13:42 13:42 13:42 WBC 12.4 H (4.5-11.0) X10^3/uL RBC 3.57 L (4.0-5.2) X10^6/uL Hgb 11.7 L (12.0-16.0) g/dL Hct 35.0 L (36-46) % MCV 98.0 (80-100) fL MCH 32.9 (26-34) PG MCHC 33.6 (30-36) % RDW 12.4 (11.6-14.8) % Plt Count 228 (150-400) X10^3/uL Neut % (Auto) 81.7 H (50-75) % Lymph % (Auto) 10.6 L (25-40) % Jerome % (Auto) 6.4 (3-14) % Eos % (Auto) 0.9 L (2-4) % Baso % (Auto) 0.4 (0-2) % Neut # (Auto) 31750 H (7144-8600) /uL Lymph # (Auto) 1300 (9878-2347) /uL Jerome # (Auto) 800 (0-900) /uL Eos # (Auto) 100 (0-450) /uL Baso # (Auto) 0 (0-100) /uL PT 10.9 (10.1-12.7) SECONDS INR 1.0 (0.9-1.3) APTT 29 (26.4-36.2) SECONDS Sodium 120 L (137-145) mmol/L Potassium 4.3 (3.4-5.1) mmol/L Chloride 89 L (98-107) mmol/L Carbon Dioxide 20 L (22-32) mmol/L BUN 17 (7-17) mg/dL Creatinine 0.91 (0.52-1.04) mg/dL Estimated GFR 59.5 L (>60) mL/min BUN/Creatinine Ratio 18.7 (6-22) Glucose 90 (80-110) mg/dL Lactate (0.7-2.1) mmol/L Calcium 9.5 (8.4-10.2) mg/dL Total Bilirubin 1.0 (0.2-1.3) mg/dL AST 29 (14-36) IU/L ALT 17 (<35) IU/L Alkaline Phosphatase 100 (38-126) U/L Total Creatine Kinase (30-135) U/L CK-MB (CK-2) CK-MB (CK-2) Rel Index Troponin I (0.01-0.034) ng/mL Total Protein 7.1 (6.3-8.2) g/dL Albumin 4.2 (3.5-5.0) g/dL Globulin 2.9 (1.7-4.1) g/dL Albumin/Globulin Ratio 1.4 (1.0-2.8) Lipase 51 (23-300) U/L Urine RBC (0-5/HPF) Urine WBC (0-5/HPF) Ur Squamous Epith Cells (0-5/HPF) Urine Bacteria (None) Ur Culture Indicated? SARS-CoV-2 (PCR) (Negative) 09/11/20 09/11/20 09/11/20 Range/Units 13:42 13:42 15:17 WBC (4.5-11.0) X10^3/uL RBC (4.0-5.2) X10^6/uL Hgb (12.0-16.0) g/dL Hct (36-46) % MCV (80-100) fL MCH (26-34) PG MCHC (30-36) % RDW (11.6-14.8) % Plt Count (150-400) X10^3/uL Neut % (Auto) (50-75) % Lymph % (Auto) (25-40) % Jerome % (Auto) (3-14) % Eos % (Auto) (2-4) % Baso % (Auto) (0-2) % Neut # (Auto) (5814-7435) /uL Lymph # (Auto) (6917-9883) /uL Jerome # (Auto) (0-900) /uL Eos # (Auto) (0-450) /uL Baso # (Auto) (0-100) /uL PT (10.1-12.7) SECONDS INR (0.9-1.3) APTT (26.4-36.2) SECONDS Sodium (137-145) mmol/L Potassium (3.4-5.1) mmol/L Chloride (98-107) mmol/L Carbon Dioxide (22-32) mmol/L BUN (7-17) mg/dL Creatinine (0.52-1.04) mg/dL Estimated GFR (>60) mL/min BUN/Creatinine Ratio (6-22) Glucose (80-110) mg/dL Lactate 1.2 (0.7-2.1) mmol/L Calcium (8.4-10.2) mg/dL Total Bilirubin (0.2-1.3) mg/dL AST (14-36) IU/L ALT (<35) IU/L Alkaline Phosphatase (38-126) U/L Total Creatine Kinase 63 (30-135) U/L CK-MB (CK-2) TNP CK-MB (CK-2) Rel Index TNP Troponin I < 0.012 (0.01-0.034) ng/mL Total Protein (6.3-8.2) g/dL Albumin (3.5-5.0) g/dL Globulin (1.7-4.1) g/dL Albumin/Globulin Ratio (1.0-2.8) Lipase (23-300) U/L Urine RBC (0-5/HPF) Urine WBC (0-5/HPF) Ur Squamous Epith Cells (0-5/HPF) Urine Bacteria (None) Ur Culture Indicated? SARS-CoV-2 (PCR) Negative (Negative) 09/11/20 Range/Units 15:20 WBC (4.5-11.0) X10^3/uL RBC (4.0-5.2) X10^6/uL Hgb (12.0-16.0) g/dL Hct (36-46) % MCV (80-100) fL MCH (26-34) PG MCHC (30-36) % RDW (11.6-14.8) % Plt Count (150-400) X10^3/uL Neut % (Auto) (50-75) % Lymph % (Auto) (25-40) % Jerome % (Auto) (3-14) % Eos % (Auto) (2-4) % Baso % (Auto) (0-2) % Neut # (Auto) (9117-7140) /uL Lymph # (Auto) (4881-9143) /uL Jerome # (Auto) (0-900) /uL Eos # (Auto) (0-450) /uL Baso # (Auto) (0-100) /uL PT (10.1-12.7) SECONDS INR (0.9-1.3) APTT (26.4-36.2) SECONDS Sodium (137-145) mmol/L Potassium (3.4-5.1) mmol/L Chloride (98-107) mmol/L Carbon Dioxide (22-32) mmol/L BUN (7-17) mg/dL Creatinine (0.52-1.04) mg/dL Estimated GFR (>60) mL/min BUN/Creatinine Ratio (6-22) Glucose (80-110) mg/dL Lactate (0.7-2.1) mmol/L Calcium (8.4-10.2) mg/dL Total Bilirubin (0.2-1.3) mg/dL AST (14-36) IU/L ALT (<35) IU/L Alkaline Phosphatase (38-126) U/L Total Creatine Kinase (30-135) U/L CK-MB (CK-2) CK-MB (CK-2) Rel Index Troponin I (0.01-0.034) ng/mL Total Protein (6.3-8.2) g/dL Albumin (3.5-5.0) g/dL Globulin (1.7-4.1) g/dL Albumin/Globulin Ratio (1.0-2.8) Lipase (23-300) U/L Urine RBC None seen (0-5/HPF) Urine WBC 1-5/hpf (0-5/HPF) Ur Squamous Epith Cells 1-5 /hpf (0-5/HPF) Urine Bacteria None seen (None) Ur Culture Indicated? Cult not indicated SARS-CoV-2 (PCR) (Negative) Point of care testing: Urine Dip Bedside Urine Glucose Negative Bedside Urine Bilirubin - Negative Bedside Urine Ketone +/- 5 Urine Specific [place] 1.015 Bedside Urine Occult Blood - Negative Bedside Urine pH 6.0 Bedside Urine Protein - Negative Bedside Urine Urobilinogen - Negative Bedside Urine Nitrite - Negative Bedside Urine Leukocytes - Negative Esterase Imaging Data CT scan - abdomen/pelvis: Radiologist's Impression: [address] [id number] Scan ReportSigned Patient: Meka Shahid [facility]#: [id number]: 1940Acct:[id number]/Sex: 80 / FDate of Service: 09/11/20Loc: EDAccession Number: [id number] Procedure: CT kidney ureter bladder (KUB) Ordering Provider: Juanita Rojo D.O. PROCEDURE: CT KIDNEY URETER BLADDER (KUB) INDICATIONS: right flank pain TECHNIQUE: Noncontrast 5 mm thick sections acquired from the diaphragms to the symphysis. 5 mm thick coronal and sagittal reformats were then performed. For radiation dose reduction, the following was used: automated exposure control, adjustment of mA and/or kV according to patient size. COMPARISON: [facility], CT, CT KIDNEY URETER BLADDER (KUB), 09/09/2020, 14:09. FINDINGS: Image quality: Excellent. Lung bases: Lung bases are clear. There is a calcified nodule in the right lower lobe along the right hemidiaphragm. Heart size is normal. Moderate coronary artery calcification. Small hiatal hernia. Urinary system: Both kidneys are normal in size. No kidney stones. No hydronephrosis or perinephric fat stranding. Both ureters appear non-dilated throughout their expected courses. Bladder wall thickness is normal; no calcified bladder stones. Other solid organs: Liver is normal in size. Gallbladder is surgically absent . Pancreas is normal in contours. Spleen is normal in size. No adrenal nodules. Peritoneum and bowel: Unenhanced bowel loops demonstrate normal wall thickness and caliber. There are numerous colonic diverticula in sigmoid colon. No CT findings to suggest acute diverticulitis. No free fluid or air. Nodes and vessels: No retroperitoneal or mesenteric adenopathy by size criteria. Aorta and inferior vena cava are normal in caliber. Severe atherosclerotic calcification of the distal abdominal aorta. Abdominal wall: There is a tiny fat containing periumbilical hernia. Pelvis: No free pelvic fluid. No inguinal hernias or adenopathy. Bones: No suspicious bony lesions. There is chronic moderate compression fracture of L3. Severe degenerative disc and facet disease in lumbar spine. There is grade 1 anterolisthesis of L4 on L5. There is right hip arthroplasty. Severe left hip joint degeneration. IMPRESSION: 1. Trace right renal pelviectasis and ureterectasis. No obstructive renal or ureteral stones are identified. The patient may have passed stone. 2. Diverticulosis without diverticulitis. Small hiatal hernia. 3. Chronic moderate compression fracture of L3. Dictated by: Josseline Sykes M.D. on 09/11/2020 at 15:43 Approved by: Josseline Sykes M.D. on 09/11/2020 at 16:01 ECG Data Attestation: I personally reviewed and interpreted this ECG as follows: Prior ECG tracings: available for review Interpretation: Sinus rhythm rate of 69 P are 156 QRS is 72 and QTC of 473. No significant ST elevation depression appreciated. Prior EKG from 01/20/2011 appears similar MDM Narrative Medical decision making narrative: This is an 80-year-old female comes in with right flank pain. Patient has had back pain this seems to be atypical from her usual pain although she does have some discomfort with movement and rolling. Kidney stone is appreciated on CT on the 09 of September, degenerative disc disease with a chronic endplate compression deformity at L3 with a grade 1 anteriorly thesis of L4 on L5 is noted which may also be contributing to her back pain. Patient did not have labs at that time but her sodium is 120 today. She seems slightly confused but answers majority of questions properly. She does not have any other clear neurologic deficits. Patient's renal function has also had a slight change. Her chloride is 89 with a CO2 of 20. LFTs are normal. Patient has a white count of 12 with a hemoglobin of 11 and normal platelets. I do not have a prior CBC available for comparison. Was repeated today as patient has continued to have vomiting without improvement. Suspect patient is going to require observation status if not inpatient admission for her hyponatremia in the setting of inability to tolerate oral fluids likely secondary to kidney stone. Patient has multiple allergies to medications. She states morphine made her vomit when she had high doses or early in the past. She has already received Zofran and will give a small dose to test how she tolerates this. She states the Toradol was not helpful. Patient did tolerate morphine 2 mg here in the department after Zofran. Patient was accepted by Dr. Carmona. Troponin, EKG and lactate was cultures were included. Cultures have not resulted but her EKG does not show any acute findings. Lactate troponin are in normal range patient's symptoms are very low back. Discharge Plan Departure Patient Disposition: Admitted as Observation Clinical Impression: Hyponatremia, Vomiting, Compression fracture, Back pain Admit Date/Time: 09/11/20 17:09 Admit Provider: Elvin Carmona
--- NOTE | 2020-09-11 14:53 | DI.CT.S_ITS ---
PROCEDURE: CT KIDNEY URETER BLADDER (KUB) INDICATIONS: right flank pain TECHNIQUE: Noncontrast 5 mm thick sections acquired from the diaphragms to the symphysis. 5 mm thick coronal and sagittal reformats were then performed. For radiation dose reduction, the following was used: automated exposure control, adjustment of mA and/or kV according to patient size. COMPARISON: [facility], CT, CT KIDNEY URETER BLADDER (KUB), 09/09/2020, 14:09. FINDINGS: Image quality: Excellent. Lung bases: Lung bases are clear. There is a calcified nodule in the right lower lobe along the right hemidiaphragm. Heart size is normal. Moderate coronary artery calcification. Small hiatal hernia. Urinary system: Both kidneys are normal in size. No kidney stones. No hydronephrosis or perinephric fat stranding. Both ureters appear non-dilated throughout their expected courses. Bladder wall thickness is normal; no calcified bladder stones. Other solid organs: Liver is normal in size. Gallbladder is surgically absent . Pancreas is normal in contours. Spleen is normal in size. No adrenal nodules. Peritoneum and bowel: Unenhanced bowel loops demonstrate normal wall thickness and caliber. There are numerous colonic diverticula in sigmoid colon. No CT findings to suggest acute diverticulitis. No free fluid or air. Nodes and vessels: No retroperitoneal or mesenteric adenopathy by size criteria. Aorta and inferior vena cava are normal in caliber. Severe atherosclerotic calcification of the distal abdominal aorta. Abdominal wall: There is a tiny fat containing periumbilical hernia. Pelvis: No free pelvic fluid. No inguinal hernias or adenopathy. Bones: No suspicious bony lesions. There is chronic moderate compression fracture of L3. Severe degenerative disc and facet disease in lumbar spine. There is grade 1 anterolisthesis of L4 on L5. There is right hip arthroplasty. Severe left hip joint degeneration. IMPRESSION: 1. Trace right renal pelviectasis and ureterectasis. No obstructive renal or ureteral stones are identified. The patient may have passed stone. 2. Diverticulosis without diverticulitis. Small hiatal hernia. 3. Chronic moderate compression fracture of L3. Dictated by: Josseline Sykes M.D. on 09/11/2020 at 15:43 Approved by: Josseline Sykes M.D. on 09/11/2020 at 16:01
[2020-09-11] MEDS: MORPHINE 2 MG/ML INJ IV (14:57)
[2020-09-11 16:32] LABS: Bacteria Urine None Seen; RBC Urine None Seen (0-5/HPF)
[2020-09-11 16:38] LABS: COVID19 - ADMIT (NP swab/PCR) Negative (Negative)
[2020-09-11 16:42] LABS: Creatine Kinase 63 U/L (30-135); Lactate (Lactic Acid) 1.2 mmol/L (0.7-2.1)
[2020-09-11 16:47] LABS: Squamous Epithelial Cell Urine 1-5 /HPF (0-5/HPF); WBC Urine 1-5/HPF (0-5/HPF)
[2020-09-11 16:48] LABS: Culture Indicated Urine Cult Not Indicated
[2020-09-11 17:05] LABS: Troponin I < 0.012 ng/mL (0.01-0.034)
[2020-09-11 18:04] LABS: Sodium Urine Random 41 mmol/L (30-90)
[2020-09-11] MEDS: SODIUM CHLORIDE 0.9% 1,000 ML 125 ML IV (18:49)
[2020-09-11 19:58] LABS: Magnesium 1.9 mg/dL (1.6-2.3)
[2020-09-11] MEDS: LOSARTAN 50 MG TABLET PO (20:58)
--- NOTE | 2020-09-11 22:48 | P.HP_ITS ---
History of Present Illness History of Present Illness Date Patient Seen: 09/11/20 Time Patient Seen: 20:50 Chief complaint: KIDNEY STONE Narrative: Ms. Calin Shahid is an 80-year-old female with past medical history significant for coronary artery disease, hypertension hyperlipidemia, compression fracture of L3 with chronic low back pain osteoarthritis and venous insufficiency who presents to ER with continuing right flank and back pain. The patient was seen in the ER on 09/09/2020 for chronic back pain. She had been seen by her PCP for similar complaint in June and started on methocarbamol and ibuprofen with physical therapy. The patient has experienced increasing pain prompting evaluation in the emergency department diagnosed with a 2 mm part ial obstructing kidney stone without infection. She was treated with Toradol with improvement and discharged home. The patient states since then she has had progressive nausea vomiting and has been unable to take pain medication or routine medications yesterday prompting to return to the ER for re-evaluation. Patient states she feels shaky but equivocal about fevers or chills. She denies urinary symptoms of frequency burning or urgency or hematuria. She denies headaches or dizziness nasal congestion or sore throat. She has had no chest pain or palpitations, shortness of breath cough or wheezing. She reports abdominal pain secondary to intractable nausea vomiting. She reports no change in stooling habits. Upon arrival patient is afebrile with temperature 96.7?, heart rate of 72, blood pressure to wait over 86, respirations 13 saturating 96% on room air. CT of the abdomen pelvis finds trace right renal. This is an ureterectasis with no renal or ureteral obstruction or stone identified. Additionally notes diverticulosis with diverticulitis and small hiatal hernia as well as identifies chronic moderate compression fracture of L3. A 12 lead EKG the patient has sinus rhythm with artifact without ectopy or block. Similar to prior tracing. Patient has a mildly elevated white count at 12.4 with neutrophils of 10,100. Her hemoglobin is 11.7 with hematocrit of 35.0 and platelets 228. Her coags are within normal range. Her chemistries are notable for a sodium of 120, BUN of 17 with a creatinine of 0.91. Her nonfasting glucose is 90. Her liver functions are all within normal limits and her lipase 51. Lactic acid is 1.2. Total CK is 63 and troponin is unremarkable. On urinalysis DS no red cells or bacteria. She has a spot urine sodium of 41. COVID screening is negative. The patient is admitted to the hospitalist team for intractable nausea vomiting and hyponatremia. Patient History Medical History CAD (coronary artery disease) HTN (hypertension) Hyperlipidemia Low back pain Osteoarthritis Venous insufficiency of both lower extremities Surgical History Hx of heart artery stent Status post total hip replacement, right Family & Social History Family History (Updated 09/11/20 @ 22:53 by NAVEEN Orr) Father Heart attack Mother Cancer Brother History of kidney transplant Sister Heart attack Sister Cancer Social History: household members family Prior Living Arrangements Apartment/Condo Safety & Behavioral: Feels Safe in Current Yes Environment Been Physically Hurt or No Threatened By a Person Suicide Plan Description No Plan Tobacco & Substance use: Smoking Status Former smoker alcohol intake frequency 0-2 drinks per day Substance Use Type does not use Meds Home Medications and Allergies Home Medications Medication Instructions Recorded Confirmed Type ASPIRIN (Aspir-Low) 81 mg PO Q DAY #0 06/15/12 09/11/20 History carvedilol [Coreg] 12.5 mg PO BID #0 06/15/12 09/11/20 History losartan [Cozaar] 50 mg PO QDAY #0 06/15/12 09/11/20 History rosuvastatin [Crestor] 40 mg PO QDAY #0 06/15/12 09/11/20 History hydrocortisone 1 % topical cream 1 applictn TOP BID PRN #28 gram 02/24/19 05/31/19 Rx naproxen 500 mg tablet 500 mg PO BID #30 tab 05/26/19 05/31/19 Rx ibuprofen 600 mg tablet 600 mg PO TID PRN #30 tab 07/03/20 07/03/20 Rx lorazepam 0.5 mg tablet 0.5 mg PO PRN #30 tab 07/03/20 07/03/20 Rx methocarbamol 500 mg tablet 500 mg PO TID PRN #20 tab 07/03/20 07/03/20 Rx Disabled Parking Permit #1 ea 07/07/20 Rx ketorolac 10 mg PO TID PRN #10 tab 09/09/20 Rx Allergies Allergy/AdvReac Type Severity Reaction Status Date / Time bee venom protein (honey bee) Allergy Severe Swelling Verified 09/11/20 14:00 hydromorphone Allergy Severe Wishon like Verified 09/11/20 14:00 I was having a heart attack adhesive tape Allergy Mild Verified 09/11/20 14:00 azithromycin [AZITHROMYCIN] Allergy Unknown Verified 09/11/20 14:00 codeine [CODEINE] Allergy Unknown Verified 09/11/20 14:00 morphine Allergy Verified 09/11/20 14:00 Review of Systems Review of Systems ROS: Yes All systems reviewed with the patient and are negative except as otherwise documented Exam Vital Signs (past 8 hours): - 09/11/20 15:00 09/11/20 15:01 09/11/20 15:30 Temperature Pulse Rate 69 65 64 Respiratory Rate Blood Pressure 172/74 H 170/98 H Pulse Oximetry 96 95 95 09/11/20 16:00 09/11/20 16:02 09/11/20 16:37 Temperature Pulse Rate 63 62 71 Respiratory Rate 16 Blood Pressure 176/74 H Pulse Oximetry 97 96 96 09/11/20 17:00 09/11/20 17:12 09/11/20 17:50 Temperature 97.3 F L Pulse Rate 63 65 63 Respiratory Rate 19 Blood Pressure 149/97 H 149/59 H Pulse Oximetry 97 96 96 09/11/20 20:58 Temperature Pulse Rate 63 Respiratory Rate Blood Pressure 149/59 H Pulse Oximetry Oxygen Delivery Method Room Air Oxygen Flow Rate 0 Objective Labs Result Diagrams: 09/11/20 13:42 09/11/20 13:42 Labs: Laboratory Results - last 24 hr 09/11/20 09/11/20 09/11/20 13:42 13:42 13:42 WBC 12.4 H RBC 3.57 L Hgb 11.7 L Hct 35.0 L MCV 98.0 MCH 32.9 MCHC 33.6 RDW 12.4 Plt Count 228 Neut % (Auto) 81.7 H Lymph % (Auto) 10.6 L [place] % (Auto) 6.4 Eos % (Auto) 0.9 L Baso % (Auto) 0.4 Neut # (Auto) 38659 H Lymph # (Auto) 1300 [place] # (Auto) 800 Eos # (Auto) 100 Baso # (Auto) 0 PT 10.9 INR 1.0 APTT 29 Sodium 120 L Potassium 4.3 Chloride 89 L Carbon Dioxide 20 L BUN 17 Creatinine 0.91 Estimated GFR 59.5 L BUN/Creatinine Ratio 18.7 Glucose 90 Lactate Calcium 9.5 Magnesium Total Bilirubin 1.0 AST 29 ALT 17 Alkaline Phosphatase 100 Total Creatine Kinase CK-MB (CK-2) CK-MB (CK-2) Rel Index Troponin I Total Protein 7.1 Albumin 4.2 Globulin 2.9 Albumin/Globulin Ratio 1.4 Lipase 51 Urine RBC Urine WBC Ur Squamous Epith Cells Urine Bacteria Ur Culture Indicated? Ur Random Sodium SARS-CoV-2 (PCR) 09/11/20 09/11/20 09/11/20 13:42 13:42 13:42 WBC RBC Hgb Hct MCV MCH MCHC RDW Plt Count Neut % (Auto) Lymph % (Auto) [place] % (Auto) Eos % (Auto) Baso % (Auto) Neut # (Auto) Lymph # (Auto) [place] # (Auto) Eos # (Auto) Baso # (Auto) PT INR APTT Sodium Potassium Chloride Carbon Dioxide BUN Creatinine Estimated GFR BUN/Creatinine Ratio Glucose Lactate 1.2 Calcium Magnesium 1.9 Total Bilirubin AST ALT Alkaline Phosphatase Total Creatine Kinase 63 CK-MB (CK-2) TNP CK-MB (CK-2) Rel Index TNP Troponin I < 0.012 Total Protein Albumin Globulin Albumin/Globulin Ratio Lipase Urine RBC Urine WBC Ur Squamous Epith Cells Urine Bacteria Ur Culture Indicated? Ur Random Sodium SARS-CoV-2 (PCR) 09/11/20 09/11/20 09/11/20 15:17 15:20 15:20 WBC RBC Hgb Hct MCV MCH MCHC RDW Plt Count Neut % (Auto) Lymph % (Auto) [place] % (Auto) Eos % (Auto) Baso % (Auto) Neut # (Auto) Lymph # (Auto) [place] # (Auto) Eos # (Auto) Baso # (Auto) PT INR APTT Sodium Potassium Chloride Carbon Dioxide BUN Creatinine Estimated GFR BUN/Creatinine Ratio Glucose Lactate Calcium Magnesium Total Bilirubin AST ALT Alkaline Phosphatase Total Creatine Kinase CK-MB (CK-2) CK-MB (CK-2) Rel Index Troponin I Total Protein Albumin Globulin Albumin/Globulin Ratio Lipase Urine RBC None seen Urine WBC 1-5/hpf Ur Squamous Epith Cells 1-5 /hpf Urine Bacteria None seen Ur Culture Indicated? Cult not indicated Ur Random Sodium 41 SARS-CoV-2 (PCR) Negative Assessment & Plan Assessment & Plan narrative: This is an 80-year-old female with past medical history significant for coronary artery disease, hypertension hyperlipidemia, compression fracture of L3 with chronic low back pain osteoarthritis and venous insufficiency who presents to ER for continuing pain following treatment for kidney stone on 09/09/2020. The patient had been prescribed Toradol and discharged home but developed intractable nausea and vomiting was unable to take medications prescribed as well as routine home medications for hypertension and developed hyponatremia. 1. Hyponatremia acute, present on admission, active -serum sodium was 120 on admission labs leave secondary to nausea vomiting dehydration. -in the ER the patient received 1 L of normal saline and normal saline at 125 cc/hour. -will recheck BMP at 11:00 p.m. to assess repletion and again with morning labs. -will treat underlying cause of nausea vomiting as described below. 2. Intractable nausea vomiting, present on admission, active -believed related to renal calculi which on CT exam today appears to have passed. -in the ER the patient received Zofran 4 mg with resolution nausea vomiting, ordered Zofran 4 mg IV every 6 hours as needed for nausea vomiting. -order Protonix 40 mg x 1 now. -ordered clear liquid diet, advance as tolerated. 3. Low back pain secondary to chronic L3 compression fracture, stable -patient with history of chronic low back pain secondary to moderate L3 compression fracture with an overlay of pain from renal calculi that has now passed. -patient has been prescribed nonsteroidal anti-inflammatories with adequate renal function, will avoid NSAID use related to gastric irritation, nausea and vomiting. -in the ER the patient received 2 mg of morphine. Ordered tramadol 50 mg t.i.d. as needed for pain -ordered gabapentin 200 mg PO at bedtime. 4. Acute uncontrolled hypertension with underlying essential hypertension, present on admission, active -patient states she has been able to take her routine medications due to nausea vomiting yesterday and today and presents with an elevated blood pressure at 208/86. -patient's pain is managed as well as restart routine medications with Coreg 12.5 mg twice daily and losartan 50 mg daily. -will evaluate response and adequacy of treatment. 5. Hyperlipidemia, chronic, stable -will continue home regimen of her statin 40 mg daily. 6. Coronary artery disease, chronic, stable. -patient sources history of heart attack is had a previous coronary stent placement. She denies complaints of chest pain or shortness of breath. -continue aspirin 81 mg daily. VTE prophylaxis: Enoxaparin IV fluid: Normal saline 125 cc/hour. Diet: Clear liquid heart healthy, advanced as tolerated. Code status: Full code, patient designates her son Irineo to be her surrogate decision maker. The patient is admitted to the hospital due to the severity of her symptoms requiring further treatment and evaluation. The patient is admitted as observation with expected length of stay to be less than 2 midnights. COVID-19 COVID-19 status: Negative Result date/Date tested (Pos, Neg/Pending): 09/11/20 Scores [facility] [place] coma scale eye opening: Spontaneous [place] coma scale verbal response: Orientated [place] coma scale motor response: Obey commands [place] coma scale total score: 15 Quality VTE Deep Vein Thrombosis/Pulmonary Embolism Present on Admission: No
[2020-09-11] MEDS: PANTOPRAZOLE 40 MG VIAL IV (23:04)
[2020-09-11 23:28] LABS: BUN Creatinine Ratio 21.1 (6-22); Blood Urea Nitrogen 16 mg/dL (7-17); Calcium 8.7 mg/dL (8.4-10.2); Carbon Dioxide 19 mmol/L (22-32); Chloride 98 mmol/L (98-107); Estimated Glomerular Filt Rate > 60.0 mL/min (>60); Glucose 74 mg/dL (80-110); HEMOLYSIS < 15 (0-50); Potassium 3.9 mmol/L (3.4-5.1); Sodium 127 mmol/L (137-145)
[2020-09-12] MEDS: DEXTROSE 5%-0.9% NS 1,000 ML 75 ML IV (00:18)
[2020-09-12] MEDS: MELATONIN 3 MG TABLET 6 MG PO (01:55)
[2020-09-12 05:02] VITALS: BP 126/59; PULSE 62; RESP 16; TEMP 36.8; O2SAT 94
[2020-09-12 05:07] VITALS: O2SAT 94
[2020-09-12 05:12] LABS: BUN Creatinine Ratio 18.5 (6-22); Blood Urea Nitrogen 15 mg/dL (7-17); Calcium 8.6 mg/dL (8.4-10.2); Carbon Dioxide 23 mmol/L (22-32); Chloride 101 mmol/L (98-107); Estimated Glomerular Filt Rate > 60.0 mL/min (>60); Glucose 86 mg/dL (80-110); HEMOLYSIS < 15 (0-50); Potassium 3.8 mmol/L (3.4-5.1); Sodium 130 mmol/L (137-145)
[2020-09-12 09:00] VITALS: BP 133/55; PULSE 66; RESP 18; TEMP 36.7; O2SAT 96
[2020-09-12] MEDS: carvediloL 12.5 MG TABLET PO (09:44)
[2020-09-12] MEDS: LOSARTAN 50 MG TABLET PO (09:44)
[2020-09-12] MEDS: ENOXAPARIN 40 MG/0.4 ML SYRINGE SUBCUT (09:45)
[2020-09-12] MEDS: TRAMADOL 50 MG TABLET PO ×2 (09:45→14:55)
[2020-09-12] MEDS: SODIUM CHLORIDE 0.9% FLUSH 10 ML IV (09:46)
--- NOTE | 2020-09-12 10:39 | PC.NURSE ---
Addendum entered by Julisa Pineda R.N. 09/12/20 11:30: Patient reports pain when sitting in chair is not any better with tramadol, but reports pain is a bit better while ambulating and lying in bed. Original Note: Patient alert, oriented, stand by assist to BSC and then to chair. Patient steady, denies nausea and tolerated some toast and tea. Given 50mg tramadol for back pain 12/16.
[2020-09-12 13:00] VITALS: O2SAT 95
--- NOTE | 2020-09-12 13:58 | CM.DANOTE ---
DCP Note Patient is 80 yo female with Medicare and [facility]. Patient presents to hospital with complaint of kidney stones. training consultant met bedside with patient during rounds. Per MD, patient passed her kidney stone. Patient presents as A/Ox4 sitting upright in chair. Patient states that she lives home alone and her son lives in [place]. PT has been ordered for patient. Plan: follow PT rose, Abad will assess d/c home TRAVON Brooks Discharge Planning/Care Management Advanced directive, confirm from FAMILY Start: 09/11/20 18:00 Freq: Q24H Status: Active Protocol: Document 09/11/20 18:00 OW (Rec: 09/11/20 20:05 OW [id number]) Advance Directive, confirm on record Time 17:30 Person contacted Irineo Shahid (son) Copy received No CM Discharge Assessment Start: 09/12/20 13:54 Freq: Status: Active Protocol: Document 09/12/20 13:54 LN (Rec: 09/12/20 13:58 LN [id number]) Discharge Planning Assessment Assigned Manager Physical TRAVON Brooks Advance Directives? Yes History Provided By Patient,Family Member Has Patient been admitted in last 30 No days? Prior Living Arrangements Apartment/Condo Household Members none Type of transporation used prior to Drives own vehicle admit Willing to Return to Facility? Yes Independent with ADL's Yes Is patient alert and oriented? Yes Discharge Plan Home Please Provide Date Initial DC 09/12/20 Assessment Was Performed
--- NOTE | 2020-09-12 14:25 | PT.IIE ---
Surgical History (Last Reviewed 09/11/20 @ 22:48 by NAVEEN Orr) Hx of heart artery stent Status post total hip replacement, right Medical History (Last Reviewed 09/11/20 @ 22:48 by NAVEEN Orr) CAD (coronary artery disease) HTN (hypertension) Hyperlipidemia Low back pain Osteoarthritis Venous insufficiency of both lower extremities Physical Therapy Inpatient Evaluation/Re-Eval M1 PT/OT-IP Prior Functional Status Start: 09/12/20 16:02 Freq: NEEDED Status: Active Protocol: Document 09/12/20 14:25 AB (Rec: 09/12/20 16:12 [email or web address] Medical Review Prior Functional Status Medical History Reviewed Yes Communication able to make needs known Mobility and Gait pt stated that she is modified independent with all mobilities and uses a SPC for ambulation but occasionally uses a FWW Social History Household Members none Living Arrangements Apartment/Condo Number of Floors (Floors) One Floor Number of Stairs To Enter/Railing? pt stated that she lives at [facility] and has no steps to enter Home Environment Standard Height Toilet,Tub/ Shower Home Equipment Front Wheel Walker,Four Wheel Walker,Straight Cane,Tub Transfer Bench,Hand Held Shower,Grab Bars Near Toilet, Grab Bars In Shower Additional Social History Comment son stated that he can stay with pt to assist her M2 PT-IP Current Condition Start: 09/12/20 16:02 Freq: NEEDED Status: Active Protocol: Document 09/12/20 14:25 AB (Rec: 09/12/20 16:12 AB [id number]) Physical Therapy Current Condition Current Condition Evaluation Date 09/12/20 Treatment Diagnosis L3 compression fx; difficulty in walking Onset Date 09/11/20 Precautions Lumbar Precautions Log Roll,No Twisting,Limit Bending,Lifting Restriction of 10 lbs M3 PT-IP Subjective Start: 09/12/20 16:02 Freq: NEEDED Status: Active Protocol: Document 09/12/20 14:25 AB (Rec: 09/12/20 16:12 AB [email or web address]) Subjective Physical Therapy Visit Type Type Initial Evaluation Visit Start Time 14:25 Visit Stop Time 14:50 Total Visit Minutes 25 Number of SALES REPRESENTATIVE MEATS Visits 0 Physical Therapy Visit Comments Patient Comments pt is agreeable to do PT Therapy Pain Assessment Pain When Pain Assessed During Mobility Location Lower Back Scale Used pain scale not stated but c/o pain when getting OOB Pain Management Techniques Distraction,Modification of Treatment,Re-positioning, Timing of Activity with Medications M4 PT-IP Mobility and Gait Start: 09/12/20 16:02 Freq: NEEDED Status: Active Protocol: Document 09/12/20 14:25 AB (Rec: 09/12/20 16:12 AB [email or web address]) PT-Bed Mobility Assessment Rolling Type of Rolling Log Rolling Level of Assist Standby Assistance Supine to Sit Supine to Sit Standby Assistance Sit to Supine Sit to Supine Standby Assistance PT-Transfer Assessment Sit to and From Stand Sit to and from Stand Standby Assistance Equipment Transfer Assistive Device Gait Belt,Straight Cane Orthotic/Prosthetic Devices or Brace: No Transfers Transfer Destination Chair Transfer Technique ambulated using SPC Transfer Ability Level of Assist Standby Assistance Comments Mobility Comments educated pt on back precautions and log roll bed mobility. completed log roll supine to sit SBA. pt stated that she has been doing log roll for a while. pt c/o back pain but was able to sit on EOB SBA. completed sit to stand SBA and ambulated using SPC 30 ft SBA. pt stated that she prefers to use the FWW at this time since she has not eaten and feels weaker. ambulated using FWW SBA 50 ft in room. agreed to sit up on chair to eat lunch. positioned on chair and table. call light within reach. informed nurse regarding mobility and pt's request for a shower. Left pt with son in room. Gait Assessment Gait Gait Assistance Required: Standby Assistance Distance (Feet) 50 Able to Maintain Weight Bearing Status Yes During Gait Assistive Devices Assistive Device Gait Belt,Front Wheeled Walker Orthotic/Prosthetic Devices or Brace: No Gait Deviations General Gait Pattern Decreased Stride Length, Decreased Feet Clearance Factors Limiting Gait Function Factors Limiting Gait Function Decreased Activity Tolerance, Decreased Strength,Limited Range of Motion,Pain,Poor Balance PT-Balance Assessment Sitting Balance and Reactions Static Sitting Balance Ability Good Dynamic Sitting Balance Ability Good Standing Balance and Reactions Static Standing Balance Ability Fair Dynamic Standing Balance Ability Fair Device Used SPC M5 PT-IP Objective Assessments Start: 09/12/20 16:02 Freq: NEEDED Status: Active Protocol: Document 09/12/20 14:25 AB (Rec: 09/12/20 16:12 AB [id number]) Orientation Orientation/Cognition Level of Alertness Alert Orientation Name,Place,Situation Language Function Ability No Deficits Noted Safety Awareness Understands Safety Issues Memory Description No Deficits Noted Gross Range of Motion Lower Extremity ROM Assessment Within Functional Limits Strength Lower Extremity Strength Assessment Within Functional Limits Coordination Assessment Gross Coordination Gross Coordination WNL Sensation Assessment Sensation Gross Sensation WNL Muscle Tone Muscle Tone WNL Yes M6 PT-IP Treatment Start: 09/12/20 16:02 Freq: NEEDED Status: Active Protocol: Document 09/12/20 14:25 AB (Rec: 09/12/20 16:12 AB [id number]) Physical Therapy Treatment Education Education Provided Precautions,Weight Bearing Status,Post-Op Packet,Safety M7 PT-IP Assessment and Plan Start: 09/12/20 16:02 Freq: NEEDED Status: Active Protocol: Document 09/12/20 14:25 AB (Rec: 09/12/20 16:12 AB [email or web address]) PT Summary Assessment and Plan Potential Rehabilitation Potential Good Status of Condition at Evaluation Stable Summary Impairments Pain,ROM,Strength,Balance,Bed Mobility,Transfers,Gait, Activity Tolerance Assessment Summary pt requiring SBA with mobility and ambulation using SPC/FWW and son stated that he can stay with pt to assist. pt may go home when medically stable. Goals Bed Mobility Goal Independent Transfer Goal Independent,Cane Gait Goal Independent,Cane Gait Distance 150 Days to Meet Goals 3 Frequency of Treatment Frequency Of Treatment Once a Day Treatment Plan Physical Therapy Treatment Plan Bed Mobility Training,Transfer Training,Gait Training, Therapeutic Exercise,Balance Retraining,Discharge Planning, Hot or Cold Pack,Neuromuscular Re-ed,Coordination Retraining Precautions Lumbar Precautions Log Roll,No Twisting,Limit Bending,Lifting Restriction of 10 lbs,Gait Belt above Incisional Area Recommendations To Nursing Amount of Assist Needed Standby Assistance Discharge Recommendations PT Discharge Recommendations Home with Assistance Transportation Needs at Discharge Private Vehicle
--- NOTE | 2020-09-12 20:14 | PC.NURSE ---
Evening Shift/Discharge Note- Patient discharged home. Discharge instructions and education reviewed with patient and signed. IV line removed and bandage applied. Patient dressed self and packed all personal belongings. Patient left via wheelchair with CARTOON ANIMATOR and son to private car at 1730 mwith all personal belongings.
--- NOTE | 2020-09-12 22:23 | P.DS_ITS ---
History of Present Illness History of Present Illness Chief complaint: KIDNEY STONE Narrative: Per H and P by Elvin Greene 09/11: Ms. Calin Shahid is an 80-year-old female with past medical history significant for coronary artery disease, hypertension hyperlipidemia, compression fracture of L3 with chronic low back pain osteoarthritis and venous insufficiency who presents to ER with continuing right flank and back pain. The patient was seen in the ER on 09/09/2020 for chronic back pain. She had been seen by her PCP for similar complaint in June and started on methocarbamol and ibuprofen with physical therapy. The patient has experienced increasing pain prompting evaluation in the emergency department diagnosed with a 2 mm partial obstructing kidney stone without infection. She was treated with Toradol with improvement and discharged home. The patient states since then she has had progressive nausea vomiting and has been unable to take pain medication or routine medications yesterday prompting to return to the ER for re- evaluation. Patient states she feels shaky but equivocal about fevers or chills. She denies urinary symptoms of frequency burning or urgency or hematuria. She denies headaches or dizziness nasal congestion or sore throat. She has had no chest pain or palpitations, shortness of breath cough or wheezing. She reports abdominal pain secondary to intractable nausea vomiting. She reports no change in stooling habits. Upon arrival patient is afebrile with temperature 96.7?, heart rate of 72, blood pressure to wait over 86, respirations 13 saturating 96% on room air. CT of the abdomen pelvis finds trace right renal. This is an ureterectasis with no renal or ureteral obstruction or stone identified. Additionally notes diverticulosis with diverticulitis and small hiatal hernia as well as identifies chronic moderate compression fracture of L3. A 12 lead EKG the patient has sinus rhythm with artifact without ectopy or block. Similar to prior tracing. Patient has a mildly elevated white count at 12.4 with neutrophils of 10,100. Her hemoglobin is 11.7 with hematocrit of 35.0 and platelets 228. Her coags are within normal range. Her chemistries are notable for a sodium of 120, BUN of 17 with a creatinine of 0.91. Her nonfasting glucose is 90. Her liver functions are all within normal limits and her lipase 51. Lactic acid is 1.2. Total CK is 63 and troponin is unremarkable. On urinalysis DS no red cells or bacteria. She has a spot urine sodium of 41. COVID screening is negative. The patient is admitted to the hospitalist team for intractable nausea vomiting and hyponatremia. Discharge Providers Provider Date of admission: 09/11/20 17:09 Discharge Date: 09/12/20 Primary care physician: Valentín Luis DO Consults: 09/11/20 19:39 Consult to Discharge Planning Routine Comment: 09/12/20 09:49 Consult to Physical Therapy Evaluate & Treat Comment: Physician Instructions: Evaluate and Treat Discharge provider: Ramon Barlow MD Summary Hospital Course Discharge Diagnosis: 1. Hyponatremia 2. Nausea/vomiting 3. Chronic L3 compression fracture with back pain 4. Recently passed kidney stone 5. Hypertension 6. Hyperlipidemia 7. CAD 8. Small hiatal hernia Hospital Course: Ms. Shahid was admitted with worsening back pain, and recent nausea and vomiting. Was found to be hypovolemic with sodium of 120. This improved with IV fluids to discharge of 130. She was tolerating diet at that point. Her nausea had improved and was thought likely related to recent passed kidney stone. She also had notable back pain in lumbar region, with a chronic l3 compression fracture. She was recommended to increase her pain meds to tramadol for better control and also to have PT as an outpatient, which she was hesistant to agree to. She had brief elevated blood pressures on admission in setting of vomiting, but this improved with improvement of her symptoms. The rest of her medical problems were stable in the hospital. Status at Discharge Cognitive/behavioral status at discharge: oriented Functional status at discharge: uses cane/walker Overall status at discharge: patient is back to baseline Time Spent with Patient Time spent: Greater than 30 minutes Exam Vital Signs (past 8 hours): Oxygen Delivery Method Room Air Oxygen Flow Rate 0 Narrative Exam Narrative: GEN: no acute distress HEENT: PERRL, moist mucous membranes CV: RRR no murmurs PULM: clear bilaterally ABD: soft, nontender, nondistended EXT: warm and well perfused no edema NEURO: AAOx3, moving all extremities BACK: pain to palpation in lumbar spine PSYCH: pleasant mood Objective Labs Result Diagrams: 09/11/20 13:42 09/12/20 04:40 Labs: Laboratory Results - last 24 hr 09/11/20 09/12/20 23:08 04:40 Sodium 127 L 130 L Potassium 3.9 3.8 Chloride 98 101 Carbon Dioxide 19 L 23 BUN 16 15 Creatinine 0.76 0.81 Estimated GFR > 60.0 > 60.0 BUN/Creatinine Ratio 21.1 18.5 Glucose 74 L 86 Calcium 8.7 8.6 PFSH Medical History CAD (coronary artery disease) HTN (hypertension) Hyperlipidemia Low back pain Osteoarthritis Venous insufficiency of both lower extremities Surgical History Hx of heart artery stent Status post total hip replacement, right Family History (Updated 09/11/20 @ 22:53 by NAVEEN Orr) Father Heart attack Mother Cancer Brother History of kidney transplant Sister Heart attack Sister Cancer Social History household members: none Smoking Status: Former smoker Discharge Plan Discharge Plan Patient Disposition: Home Provider Discharge Comment: Ms. Shahid came in with back pain and nausea. She was recently found to have a kidney stone at a previous ER visit. Repeat CT scan showed no stone. Her nausea improved. Her back pain was notable near the spine, she has had back pain since June, and she was found to CT scan to have a chronic compression fracture at L3. She was recommended increased pain medications and physical therapy. Discharge orders & Medications Prescriptions: New tramadol 50 mg Tablet 50 mg PO TID PRN (Reason: Pain, Severe (7-10)) 7 Days RF: 0 Continued losartan [Cozaar] 50 MG tablet 50 mg PO QDAY Qty: 0 RF: 0 carvedilol [Coreg] 12.5 MG tablet 12.5 mg PO BID Qty: 0 RF: 0 rosuvastatin [Crestor] 40 MG tablet 40 mg PO QDAY Qty: 0 RF: 0 aspirin 81 mg Tablet,Chewable 81 mg PO DAILY Qty: 0 RF: 0 ibuprofen 600 mg tablet 600 mg PO TID PRN (Reason: pain) Qty: 30 RF: 0 lorazepam [Ativan] 0.5 mg tablet 0.5 mg PO PRN Qty: 30 RF: 2 cholecalciferol (vitamin D3) [Vitamin D3] 50 mcg (2,000 unit) Capsule 50 mcg PO DAILY RF: 0 Discontinued ketorolac 10 mg tablet 10 mg PO TID PRN (Reason: pain) Qty: 10 RF: 0 No Action (DME) Disabled Parking Permit See Rx Instructions .ROUTE .MEDSUPPLY Qty: 1 RF: 0 Follow up/Referrals: Valentín Lusi, [Primary Care Provider] - Discharge Health Status Multidrug resistant organism: No MDRO Diet/Activity/Treatments Diet: Diet as Tolerated Visit Report/Discharge Packet Instructions: DI for Vertebral Fracture, Tramadol Discharge Data Primary Care Provider: Valentín Luis Attending Provider: Elvin Carmona VTE Deep Vein Thrombosis/Pulmonary Embolism Present on Admission: No
[2020-09-12 22:51] LABS: Osmolality Urine 190 mOsmol/kg (.)
== END 2020-09-12 18:25 | disposition home or self-care (01) ==
LOC: ED 17:09 → AC 17:11
PROVIDERS: Emergency Medicine; Nurse Practitioner Adult Health; Admitting Provider Internal Medicine; Emergency Provider Emergency Medicine; PCP Family Medicine; Referring Provider Emergency Medicine; Visit Provider Internal Medicine
DX: E87.1 Hypo-osmolality and hyponatremia (principal); R10.9 Unspecified abdominal pain; R11.2 Nausea with vomiting, unspecified; M54.5 Low back pain; I25.10 Atherosclerotic heart disease of native coronary artery without angina pectoris; I10 Essential (primary) hypertension; E78.5 Hyperlipidemia, unspecified; M48.56XA Collapsed vertebra, not elsewhere classified, lumbar region, initial encounter for fracture; I25.2 Old myocardial infarction; K44.9 Diaphragmatic hernia without obstruction or gangrene; Z87.442 Personal history of urinary calculi; Z20.822 Contact with and (suspected) exposure to COVID-19
CPT/HCPCS: 36415; 74176; 80048; 80053; 81003; 81015; 82550; 82962; 83605; 83690; 83735; 83935; 84300; 84484; 85025; 85610; 85730; 87040; 87635; 93005; 96361; 96374; 96375; 97161; 99285; G0378; C9113; J1650; J2270; J2405

== ENCOUNTER → 2020-10-20 13:11 | Outpatient (CLI) | payer MEDICARE, OTHER, SELFPAY ==
[2020-09-11 17:27] VITALS: BMI 26.4
== END ==
PROVIDERS: PCP Family Medicine; Referring Provider Family Medicine; Visit Provider Family Medicine
DX: M81.0 Age-related osteoporosis without current pathological fracture (principal); Z78.0 Asymptomatic menopausal state; S32.030G Wedge compression fracture of third lumbar vertebra, subsequent encounter for fracture with delayed healing; Z87.891 Personal history of nicotine dependence
CPT/HCPCS: 77080

== ENCOUNTER → 2021-03-28 10:13 | Outpatient (CLI) | payer MEDICARE, OTHER, SELFPAY ==
[2020-09-11 17:27] VITALS: BMI 26.4
[2021-03-28 11:18] LABS: BUN Creatinine Ratio 15.4 (6-22); Blood Urea Nitrogen 14 mg/dL (7-17); Estimated Glomerular Filt Rate 59.3 mL/min (>60)
== END ==
PROVIDERS: PCP Family Medicine; Referring Provider Otolaryngology; Visit Provider Otolaryngology
DX: R22.0 Localized swelling, mass and lump, head (principal)
CPT/HCPCS: 36415; 82565; 84520

== ENCOUNTER → 2021-03-29 13:13 | Outpatient (CLI) | payer MEDICARE, OTHER, SELFPAY ==
[2020-09-11 17:27] VITALS: BMI 26.4
--- NOTE | 2021-03-29 | DI.CT.S_ITS ---
PROCEDURE: CT SOFT TISSUE NECK W CON INDICATIONS: Localized swelling, mass and lump, head TECHNIQUE: After the administration of intravenous contrast, 3.0 mm axial sections acquired from the sella to the aortic arch. Additional oblique axial 3.0 mm sections acquired through the pharynx. 3 mm thick coronal and sagittal reformats were generated. For radiation dose reduction, the following was used: automated exposure control. COMPARISON: None. FINDINGS: Image quality: Excellent. Lymph nodes: No enlarged lymph nodes seen throughout the neck. Vessels: Visualized vasculature appears patent. Neck spaces: The oropharynx, nasopharynx, and pharynx demonstrate no mucosal lesions. The vocal cords, false vocal cords, pyriform sinuses, epiglottis, vallecula, and tongue base all appear normal. Extramucosal spaces appear unremarkable. No discrete mass, fluid collections or inflammation identified deep to metallic BB localizer placed over the anterior-lateral left neck soft tissues noted the level of the left submandibular gland. Glands: Complete fatty atrophy of the right submandibular gland. Left submandibular gland is normal in appearance. The parotid glands appear normal. Thyroid gland is normal. Miscellaneous: Visualized brain and orbits appear normal. Cluster of nodules noted in the left upper lobe ranging in size from 4-11 millimeters (series 2, images 23-34). 4 millimeter subpleural nodule noted in the anterior medial aspect of the right upper lobe (series 2, image 13). Partially visualized masslike consolidation noted in the medial aspect of the left upper lobe adjacent to the mediastinum (series 2, image 34. Superficial soft tissues appear normal. Bones: No suspicious bony lesions. Spine degenerative disc disease and facet arthropathy. Visualized sinuses and mastoids appear unremarkable. IMPRESSION: 1. No abnormal mass, fluid collections or inflammation identified in the region of clinical interest. 2. No lymphadenopathy based on size criteria. 3. No mucosal based mass. 4. Fatty atrophy/replacement of the right submandibular gland. 5. Masslike consolidation in the left upper lobe and cluster of nodules in the left upper lobe. Finding could be related to infectious or neoplastic etiology. Recommend dedicated CT scan of the chest with contrast for additional evaluation. Dictated by: Carmen Emmanuel MD, PhD on 03/29/2021 at 14:38 Approved by: Carmen Emmanuel MD, PhD on 03/29/2021 at 15:17
== END ==
PROVIDERS: PCP Family Medicine; Referring Provider Otolaryngology; Visit Provider Otolaryngology
DX: R22.0 Localized swelling, mass and lump, head (principal); R91.8 Other nonspecific abnormal finding of lung field
CPT/HCPCS: 70491; Q9967

== ENCOUNTER → 2021-04-26 10:41 | Outpatient (CLI) | payer MEDICARE, OTHER, SELFPAY ==
[2020-09-11 17:27] VITALS: BMI 26.4
--- NOTE | 2021-04-26 10:43 | DI.CT.S_ITS ---
PROCEDURE: CT CHEST W CON INDICATIONS: left lung mass TECHNIQUE: After the administration of intravenous contrast, 5 mm thick sections acquired from the pulmonary apices to the posterior costophrenic angles. 1 mm axial lung, 5 mm thick coronal and sagittal reformats and 7 mm axial MIP were acquired. For radiation dose reduction, the following was used: automated exposure control, adjustment of mA and/or kV according to patient size. COMPARISON: [facility], CR, XR LUMBAR SPINE 2-3V, 07/03/2020, 10:31. [facility], CT, CT KIDNEY URETER BLADDER (KUB), 09/09/2020, 14:09. [facility], CT, CT KIDNEY URETER BLADDER (KUB), 09/11/2020, 14:56. [facility], CR, CHEST 1 VIEW, 01/20/2011, 22:45. [facility], CT, CT SOFT TISSUE NECK W CON, 03/29/2021, 13:36. FINDINGS: Image quality: Excellent. Lungs and pleura: There is a subpleural masslike density in the left upper lobe medially measuring 2.0 x 3.0 cm (series 3, image 117). There are multiple nodules bilaterally, some demonstrating tree-in-bud configuration. The most prominent nodules are a cluster inferior left upper lobe nodules, measuring up to 7 x 8 mm (series 3, image 106). There is mild bronchiectasis in the left upper lobe. Mild centrilobular emphysema. No pleural effusions or pneumothorax. Central and peripheral airways are patent and normal in caliber. Mediastinum: Heart size is normal. Severe coronary artery calcification. No pericardial effusion. There is a 1.3 cm subcarinal lymph node. Thoracic aorta and central pulmonary arteries are normal in size. Esophagus is normal in caliber. No hiatal hernia. Bones and chest wall: No suspicious bony lesions. Severe T12 vertebral body compression fracture, new since 09/11/2020. There is mild posterior displacement of T12 vertebral body. No axillary or supraclavicular adenopathy by size criteria. Thyroid gland is normal . Abdomen: Mild hepatic steatosis. Visualized upper abdominal solid organs otherwise appear normal. Upper abdominal bowel loops are normal in caliber. IMPRESSION: 1. There is a 2 x 3 cm mass-like density in the left upper lobe medially. Although this is most likely secondary to infectious or inflammatory etiology, neoplasm cannot be excluded. Recommend a a PET-CT can be obtained for further evaluation. Alternatively, a short-term follow-up CT can be obtained in 3 months. 2. Multiple small pulmonary nodules bilaterally, some demonstrating tree-in-bud configurations, suggesting granulomatous infection. 3. Mild left upper lobe bronchiectasis. 4. Mild centrilobular emphysema. 5. Mildly enlarged subcarinal lymph node. This finding is nonspecific. 6. Severe coronary artery calcification. 7. Severe T12 compression fracture with mild posterior displacement of T2 vertebral body. MRI is recommended for further evaluation.. Dictated by: Josseline Sykes M.D. on 04/26/2021 at 13:06 Approved by: Josseline Sykes M.D. on 04/26/2021 at 13:25
[2021-04-26 11:18] LABS: Alanine Aminotransferase 13 IU/L (<35); Albumin 4.1 g/dL (3.5-5.0); Albumin Globulin Ratio 1.5 (1.0-2.8); Alkaline Phosphatase 75 U/L (38-126); Aspartate Aminotransferase 28 IU/L (14-36); BUN Creatinine Ratio 15.8 (6-22); Bilirubin Total 0.7 mg/dL (0.2-1.3); Blood Urea Nitrogen 15 mg/dL (7-17); Calcium 9.2 mg/dL (8.4-10.2); Carbon Dioxide 30 mmol/L (22-32); Chloride 96 mmol/L (98-107); Estimated Glomerular Filt Rate 56.5 mL/min (>60); Globulin 2.7 g/dL (1.7-4.1); Glucose 92 mg/dL (80-110); HEMOLYSIS < 15 (0-50); Potassium 4.1 mmol/L (3.4-5.1); Sodium 130 mmol/L (137-145); Total Protein 6.8 g/dL (6.3-8.2)
== END ==
PROVIDERS: PCP Family Medicine; Referring Provider Family Medicine; Visit Provider Family Medicine
DX: Z01.812 Encounter for preprocedural laboratory examination (principal); R91.8 Other nonspecific abnormal finding of lung field; J47.9 Bronchiectasis, uncomplicated; J43.2 Centrilobular emphysema; R59.0 Localized enlarged lymph nodes; I25.10 Atherosclerotic heart disease of native coronary artery without angina pectoris; M48.54XA Collapsed vertebra, not elsewhere classified, thoracic region, initial encounter for fracture
CPT/HCPCS: 36415; 71260; 80053; Q9967

== ENCOUNTER → 2021-11-08 09:24 | Outpatient (CLI) | payer MEDICARE, OTHER, SELFPAY ==
[2020-09-11 17:27] VITALS: BMI 26.4
--- NOTE | 2021-11-08 10:00 | DI.CT.S_ITS ---
PROCEDURE: CT CHEST WO CON INDICATIONS: Left lung mass TECHNIQUE: Noncontrast 5 mm thick sections acquired from the pulmonary apices to the posterior costophrenic angles. 1 mm lung window, 5 mm thick coronal and sagittal and 7 mm axial MIP reformats were then acquired. For radiation dose reduction, the following was used: automated exposure control, adjustment of mA and/or kV according to patient size. COMPARISON: [facility], CT, CT VERAN CHEST, 08/15/2021, 14:27. [facility], [place], [place] PET CT FUSION SKULL 2 THIGH, 07/11/2021, 10:12. [facility], CT, CT CHEST W CON, 04/26/2021, 11:45. FINDINGS: Image quality: Excellent. Lungs and pleura: Medial left upper lobe mass has decreased in size currently measuring 2.7 x 0.8 cm compared to 3.1 x 1.5 cm on 08/15/2021. Previously identified left upper lobe nodules remain present seen on series 3, images 113 and 111. The more posterior lesion seen on series 3, image 111 measure approximately 4-5 mm each appearing 1-2 mm increased in size compared to prior exam. The more anterior lesion seen on image 114 on series 3 measures 4 mm compared to 3 mm on prior exam. Several additional punctate nodules are identified. Mediastinum: Heart size is normal. No pericardial effusion. ASCVD. Coronary calcifications are present. No mediastinal adenopathy by size criteria. Thoracic aorta and central pulmonary arteries are normal in size. Esophagus is normal in caliber. No hiatal hernia. Bones and chest wall: No suspicious bony lesions. No vertebral body compression fractures. No axillary or supraclavicular adenopathy by size criteria. Thyroid gland is unremarkable . Abdomen: Visualized upper abdominal solid organs and bowel loops appear normal in the absence of contrast. IMPRESSION: Interval decrease in size of medial left upper lobe mass. Left upper lobe nodules appearing similar with some demonstrating 1-2 mm interval increase in size. While this could be surgical sales representative volume averaging, close interval imaging follow-up is recommended to document stability and exclude progression. Dictated by: Taylor Fair M.D. on 11/08/2021 at 16:16 Approved by: Taylor Fair M.D. on 11/08/2021 at 16:24
== END ==
PROVIDERS: PCP Family Medicine; Referring Provider Internal Medicine Hematology & Oncology; Visit Provider Internal Medicine Hematology & Oncology
DX: R91.8 Other nonspecific abnormal finding of lung field (principal)
CPT/HCPCS: 71250

== ENCOUNTER → 2022-02-08 10:05 | Outpatient (CLI) | payer MEDICARE, OTHER, SELFPAY ==
[2020-09-11 17:27] VITALS: BMI 26.4
[2022-02-08 11:37] LABS: Cholesterol 139 mg/dL (140-199); HDL Cholesterol 66 mg/dL (40-60); LDL Cholesterol Calculated 60 mg/dL (<100); Triglycerides 66 mg/dL (35-150)
[2022-02-14 12:35] LABS: Calcitonin <2.0 pg/mL (0.0-5.0)
== END ==
PROVIDERS: PCP Family Medicine; Referring Provider Internal Medicine Cardiovascular Disease; Visit Provider Internal Medicine Cardiovascular Disease
DX: E78.00 Pure hypercholesterolemia, unspecified (principal); E55.9 Vitamin D deficiency, unspecified
CPT/HCPCS: 36415; 80061; 82308

== ENCOUNTER → 2022-03-13 11:13 | Outpatient (CLI) | payer MEDICARE, OTHER, SELFPAY ==
[2020-09-11 17:27] VITALS: BMI 26.4
--- NOTE | 2022-03-13 11:15 | DI.CT.S_ITS ---
PROCEDURE: CT CHEST ABDOMEN WO CON INDICATIONS: left lung mass TECHNIQUE: After the administration of oral contrast, 5 mm thick sections acquired from the pulmonary apices to the iliac crests. 5 mm thick coronal and sagittal reformats acquired, with additional 7 mm coronal MIP reformats through the lungs. For radiation dose reduction, the following was used: automated exposure control, adjustment of mA and/or kV according to patient size. COMPARISON: [facility], CT, CT CHEST W CON, 04/26/2021, 11:45. [facility], NM, NM PET CT FUSION SKULL 2 THIGH, 07/11/2021, 10:12. [facility], CT, CT CHEST WO CON, 11/08/2021, 9:26. FINDINGS: Image quality: Excellent. CHEST: Lungs and pleura: Left upper lobe medial lesion measuring 1.3 cm, (3/120), unchanged, and more remotely [address] chest 04/26/2021. There was FDG avidity at this site on prior PET/CT. Left upper lobe tree-in-bud nodular opacity. There are a few areas of new nodularity. For example: left upper lobe 0.5 cm, (3/82); and left upper lobe is 0.8 cm, (3/145). Mild peripheral reticular thickening. The airways are clear. No pleural effusion. No pneumothorax. Mediastinum: Heart size is normal. Severe coronary artery calcifications in the LAD and left circumflex. Mild coronary artery calcifications in the RCA seen. No pericardial effusion. No mediastinal adenopathy by size criteria. Subcarinal lymph node measuring 0.8 cm, (2/28), unchanged. Thoracic aorta and central pulmonary arteries are normal in size. Esophagus is normal in caliber. No hiatal hernia. Chest wall: No axillary or supraclavicular adenopathy by size criteria. Thyroid gland is unremarkable. ABDOMEN: Solid organs: Liver is normal in size. Calcified granuloma. Gallbladder is absent. Pancreas is normal in contours. Spleen is normal in size. No adrenal nodules. Both kidneys are normal in size, without hydronephrosis or nephrolithiasis. Peritoneum and bowel: Small and large bowel loops are normal in caliber and wall thickness. Appendix is partially visualized and is not distended. No free fluid or air. Nodes and vessels: No retroperitoneal or mesenteric adenopathy by size criteria. Aorta and inferior vena cava are normal in caliber. Miscellaneous: No ventral hernias. Bones: Mild T8 compression fracture, new. T12 vertebral plana is unchanged. L1 and L3 compression fractures. The L1 compression fracture is new compared to 07/11/2021. IMPRESSION: 1. Left upper lobe medial lesion measuring 1.3 cm is unchanged. This lesion is decreased in size compared to April 2021. 2. Left upper lobe tree-in-bud nodular opacity. There are a few small areas of new nodularity or pulmonary nodules. Suspect bronchitis over malignancy. 3. No enlarged lymph nodes are identified. Prominent subcarinal lymph node is unchanged. 4. No mass or adenopathy in the abdomen. No free fluid. 5. New compression fracture at T8 since November 2021. New compression fracture at L1 in the interval since July 2021. Dictated by: Yovany Rojas M.D. on 03/13/2022 at 15:33 Approved by: Yovany Rojas M.D. on 03/13/2022 at 15:52
== END ==
PROVIDERS: PCP Family Medicine; Referring Provider Internal Medicine Hematology & Oncology; Visit Provider Internal Medicine Hematology & Oncology
DX: R91.8 Other nonspecific abnormal finding of lung field (principal); I25.10 Atherosclerotic heart disease of native coronary artery without angina pectoris; M48.54XA Collapsed vertebra, not elsewhere classified, thoracic region, initial encounter for fracture; M48.56XA Collapsed vertebra, not elsewhere classified, lumbar region, initial encounter for fracture; Z90.49 Acquired absence of other specified parts of digestive tract
CPT/HCPCS: 71250; 74150

== ENCOUNTER → 2022-11-15 11:15 | Outpatient (CLI) | payer MEDICARE, OTHER, SELFPAY ==
[2020-09-11 17:27] VITALS: BMI 26.4
[2022-11-15 12:06] LABS: Influenza A - CEPHEID Flu A NEGATIVE (NEGATIVE); Influenza B - CEPHEID Flu B NEGATIVE (NEGATIVE); Respiratory Syncytial Virus Negative (Negative)
[2022-11-15 12:13] LABS: COVID-19 CEPHEID 4-PLEX PCR Negative (Negative)
== END ==
PROVIDERS: PCP Family Medicine; Visit Provider Nurse Practitioner Family
DX: R05.1 Acute cough (principal)
CPT/HCPCS: 0241U

== ENCOUNTER → 2022-11-15 11:29 | Outpatient (CLI) | payer MEDICARE, OTHER, SELFPAY ==
[2020-09-11 17:27] VITALS: BMI 26.4
--- NOTE | 2022-11-15 11:32 | DI.RAD.S_ITS ---
PROCEDURE: XR CHEST 2V INDICATIONS: Cough TECHNIQUE: 2 views of the chest were acquired. COMPARISON: [facility], , CHEST 1 VIEW, 01/20/2011, 22:45. FINDINGS: Surgical changes and devices: None. Lungs and pleura: Lungs are clear. No pleural effusions or pneumothorax. Mediastinum: Mediastinal contours are normal. Heart size is normal. Bones and chest wall: No suspicious bony abnormalities. Soft tissues appear unremarkable. IMPRESSION: No acute process. Dictated by: Valeriano Schultz M.D. on 11/15/2022 at 11:58 Approved by: Valeriano Schultz M.D. on 11/15/2022 at 12:01
== END ==
PROVIDERS: PCP Family Medicine; Referring Provider Nurse Practitioner Family; Visit Provider Nurse Practitioner Family
DX: R05.1 Acute cough (principal)
CPT/HCPCS: 0241U; 71046

== ENCOUNTER → 2022-12-06 12:10 | Outpatient (CLI) | payer MEDICARE, OTHER, SELFPAY ==
[2020-09-11 17:27] VITALS: BMI 26.4
--- NOTE | 2022-12-06 12:12 | DI.RAD.S_ITS ---
PROCEDURE: XR HIP W PEL IF DONE SALTY MIN 4V INDICATIONS: hx of total hip. pain after sweeping TECHNIQUE: AP pelvis with lateral views of the right and left hips. COMPARISON: [facility], CR, [id number] W PEL IF PERFORMED, 11/16/2015, 13:58. FINDINGS: Bones: Postsurgical changes are seen from right total hip arthroplasty with hardware components in stable positions. No acute osseous fracture is seen. Severe left hip osteoarthrosis has progressed when compared to the prior exam from 2015. Degenerative changes are seen in the included spine. Soft tissues: The visualized bowel gas pattern is normal. No suspicious soft tissue calcifications. IMPRESSION: 1. Stable appearance of a right total hip arthroplasty. 2. Progressive severe left hip osteoarthrosis. Approved by: Curt Sanz M.D. on 12/06/2022 at 15:21
== END ==
PROVIDERS: PCP Family Medicine; Referring Provider Nurse Practitioner Family; Visit Provider Nurse Practitioner Family
DX: M25.551 Pain in right hip (principal); Z96.641 Presence of right artificial hip joint; M16.12 Unilateral primary osteoarthritis, left hip
CPT/HCPCS: 73522

== ENCOUNTER → 2023-01-15 11:39 | Outpatient (CLI) | payer MEDICARE, OTHER, SELFPAY ==
[2020-09-11 17:27] VITALS: BMI 26.4
[2023-01-15 13:42] LABS: Alanine Aminotransferase 15 IU/L (<35); Albumin 3.7 g/dL (3.5-5.0); Albumin Globulin Ratio 1.3 (1.0-2.8); Alkaline Phosphatase 85 U/L (38-126); Aspartate Aminotransferase 27 IU/L (14-36); BUN Creatinine Ratio 13.7 (6-22); Bilirubin Total 0.7 mg/dL (0.2-1.3); Blood Urea Nitrogen 13 mg/dL (7-17); Calcium 8.6 mg/dL (8.4-10.2); Carbon Dioxide 26 mmol/L (22-32); Chloride 98 mmol/L (98-107); Cholesterol 154 mg/dL (140-199); Estimated Glomerular Filt Rate 60 mL/min (>60); Globulin 2.8 g/dL (1.7-4.1); Glucose 85 mg/dL (80-110); HDL Cholesterol 77 mg/dL (40-60); HEMOLYSIS < 15 (0-50); LDL Cholesterol Calculated 56 mg/dL (<100); Potassium 4.1 mmol/L (3.4-5.1); Sodium 132 mmol/L (137-145); Total Protein 6.5 g/dL (6.3-8.2); Triglycerides 107 mg/dL (35-150)
== END ==
PROVIDERS: PCP Family Medicine; Referring Provider Nurse Practitioner; Visit Provider Nurse Practitioner
DX: I10 Essential (primary) hypertension (principal); E78.00 Pure hypercholesterolemia, unspecified
CPT/HCPCS: 36415; 80053; 80061

== ENCOUNTER → 2023-05-05 12:20 | Outpatient (CLI) | payer MEDICARE, OTHER, SELFPAY ==
[2020-09-11 17:27] VITALS: BMI 26.4
[2023-05-05 12:37] LABS: Add Manual Diff / Slide Review NO; Basophils Absolute Auto 100 /uL (0-100); Basophils Percent Auto 0.7 % (0-2); Eosinophils Absolute Auto 0 /uL (0-450); Eosinophils Percent Auto 0.7 % (2-4); Hematocrit 31.8 % (36-46); Hemoglobin 10.7 g/dL (12.0-16.0); Lymphocytes Absolute Auto 1900 /uL (1100-4500); Lymphocytes Percent Auto 26.5 % (25-40); Mean Corpuscular HGB Conc 33.7 % (30-36); Mean Corpuscular Hemoglobin 32.8 PG (26-34); Mean Corpuscular Volume 97.6 fL (80-100); Monocytes Absolute Auto 700 /uL (0-900); Neutrophils Absolute Auto 4400 /uL (1500-7000); Neutrophils Percent Auto 62.1 % (50-75); Platelet Count 238 X10^3/uL (150-400); Red Blood Cell Count 3.26 X10^6/uL (4.0-5.2); Red Cell Distribution Width 12.9 % (11.6-14.8)
[2023-05-05 12:53] LABS: Alanine Aminotransferase 16 IU/L (<35); Albumin 3.7 g/dL (3.5-5.0); Albumin Globulin Ratio 1.3 (1.0-2.8); Alkaline Phosphatase 49 U/L (38-126); Aspartate Aminotransferase 29 IU/L (14-36); Bilirubin Total 0.7 mg/dL (0.2-1.3); Blood Urea Nitrogen 11 mg/dL (7-17); Calcium 9.1 mg/dL (8.4-10.2); Carbon Dioxide 27 mmol/L (22-32); Chloride 100 mmol/L (98-107); Estimated Glomerular Filt Rate 50 mL/min (>60); Globulin 2.9 g/dL (1.7-4.1); Glucose 91 mg/dL (80-110); HEMOLYSIS < 15 (0-50); Potassium 4.1 mmol/L (3.4-5.1); Sodium 132 mmol/L (137-145); Total Protein 6.6 g/dL (6.3-8.2)
== END ==
PROVIDERS: PCP Family Medicine; Referring Provider Internal Medicine Hematology & Oncology; Visit Provider Internal Medicine Hematology & Oncology
DX: S32.030A Wedge compression fracture of third lumbar vertebra, initial encounter for closed fracture (principal); R91.8 Other nonspecific abnormal finding of lung field
CPT/HCPCS: 36415; 80053; 85025

== ENCOUNTER → 2023-12-01 09:13 | Outpatient (CLI) | payer MEDICARE, OTHER, SELFPAY ==
[2020-09-11 17:27] VITALS: BMI 26.4
[2023-12-01 10:28] LABS: Vitamin D 25 Hydroxy (D3) 50.6 ng/mL (30.0-100.0)
== END ==
LOC: LAB 09:14
PROVIDERS: PCP Family Medicine; Referring Provider Nurse Practitioner; Visit Provider Nurse Practitioner
DX: E55.9 Vitamin D deficiency, unspecified (principal)
CPT/HCPCS: 36415; 82306

== ENCOUNTER → 2024-10-22 10:38 | Outpatient (CLI) | payer MEDICARE, OTHER, SELFPAY ==
[2020-09-11 17:27] VITALS: BMI 26.4
--- NOTE | 2024-10-22 10:43 | DI.ECHO.S_ITS ---
[facility]---------+ [facility] : : [address] : : [place] : : [id number] : : Phone: [phone] Echocardiogram Report + + :Name: GOMEZ HOLLINS Study Date: 10/22/2024 Height: 61 in : :[facility] ReadingLocation: Weight: 118 lb : : Gender: Female BSA: 1.5 m2 : :: 1940 Age: 84 yrs BP: 118/62 mmHg: :Reason For Study: CORONARY ARTERY DISEASE : :Ordering Physician: GIAN, : :AJIT Performed By: Haritha Merida : :Referring: AJIT SPRINGER : + + Interpretation Summary The left ventricle is normal in size. The left ventricular ejection fraction is normal. The ejection fraction is estimated to be 60-65%. No significant change in LV function The right ventricle is normal in size and function. No significant valvular pathology seen. Previously mild MR. There is aortic root sclerosis/calcification. Mild atherosclerotic plaque(s) in the aortic arch. The IVC is of normal diameter and collapses greater than 50% with a sniff. This suggests a low right atrial pressure of 3 mm Hg. Procedure: A two-dimensional transthoracic echocardiogram with color flow and Doppler was performed. The study quality was technically adequate. Comparison is made with the echocardiogram of 04/04/2020. The patient was in sinus bradycardia with heart rates between 53-66 bpm during the exam. Left Ventricle: The left ventricle is normal in size. Proximal septal thickening is noted. There is no echo evidence for significant left ventricular outflow tract obstruction. There is no thrombus. The ejection fraction is estimated to be 60-65%. The left ventricular ejection fraction is normal. There are no focal wall motion abnormalities. Diastolic parameters suggest a relaxation abnormality of the left ventricle, consistent with probable normal filling pressures. Right Ventricle: The right ventricle is normal in size and function. Atria: The left atrial size is normal. There has been no significant change since the previous study. Right atrial size is normal. There is no Doppler evidence for an interatrial shunt. Mitral Valve: The mitral valve leaflets appear to open well. There is mild mitral annular calcification. There is trace mitral regurgitation. Aortic Valve: The aortic valve is trileaflet. The aortic valve opens well. There is no aortic valve stenosis. No aortic regurgitation is present. Tricuspid Valve: The tricuspid valve leaflets are thin and pliable. There is trace tricuspid regurgitation. Pulmonary artery pressures cannot be estimated because of the lack of a measurable TR jet velocity but the IVC suggests a CVP of around 3 mmHg. Pulmonic Valve: The pulmonic valve is not well visualized. There is no pulmonic valvular regurgitation. Great Vessels: The aortic root is normal size. There is aortic root sclerosis/calcification. The dimensions of the ascending aorta are normal. Mild atherosclerotic plaque(s) in the aortic arch. The IVC is of normal diameter and collapses greater than 50% with a sniff. This suggests a low right atrial pressure of 3 mm Hg. Pericardium/ Pleura There is no pericardial effusion. There is no pleural effusion. MMode/2D Measurements & Calculations LVIDd: 4.4 cm LVOT diam: 1.8 cm LVIDs: 2.8 cm Ao root diam: 3.2 cm FS: 35.3 % asc Aorta Diam: 2.7 cm IVSd: 0.83 cm Ao Arch Diam (Prox Trans): 2.1 cm LVPWd: 0.81 cm LV marin. diameter/BSA (cm/m^2): 2.9 LV sys. diameter/BSA (cm/m^2): 1.9 LA A2 area: 14.3 cm2 RA long axis: 3.9 cm LA A4 area: 10.2 cm2 RA area: 8.7 cm2 LA length (vol): 4.3 cm RA vol: 16.5 ml LA vol: 29.1 ml RA : 10.9 ml/m2 LA vol index: 19.3 ml/m2 IVC diam: 1.5 cm RVD1 (basal): 2.7 cm RVD2 (mid): 2.7 cm TAPSE: 2.2 cm Doppler Measurements & Calculations Ao V2 max: 143.2 cm/sec LVOT Max Bhaskar: 88.4 cm/sec Ao V2 mean: 98.0 cm/sec LV V1 max P.1 mmHg Ao max P.2 mmHg LV V1 VTI: 21.8 cm Ao mean P.3 mmHg SILVERIO(I,D): 1.7 cm2 Ao V2 VTI: 33.8 cm SILVERIO(V,D): 1.6 cm2 sev ratio: 0.64 SILVERIO indexed to BSA (cm^2/m^2): 1.1 MV E max bhaskar: 74.7 cm/sec PA V2 max: 84.5 cm/sec MV A max bhaskar: 93.2 cm/sec PA V2 mean: 64.4 cm/sec MV E/A: 0.80 PA mean P.8 mmHg Med Peak E' Bhaskar: 7.0 cm/sec PA pr(Accel): 45.6 mmHg E/E' med: 10.7 Lat Peak E' Bhaskar: 8.9 cm/sec E/E' lat: 8.4 E/e' average: 9.5 MV dec time: 0.22 sec SV(LVOT): 56.8 ml Reading Physician:02:22 PM
== END ==
LOC: ECHO 10:41
PROVIDERS: PCP Family Medicine; Referring Provider Internal Medicine Cardiovascular Disease; Visit Provider Internal Medicine Cardiovascular Disease
DX: I34.0 Nonrheumatic mitral (valve) insufficiency (principal); I70.0 Atherosclerosis of aorta; I25.10 Atherosclerotic heart disease of native coronary artery without angina pectoris; R00.1 Bradycardia, unspecified
CPT/HCPCS: 93306

== ENCOUNTER → 2024-10-28 13:47 | Outpatient (CLI) | payer MEDICARE, OTHER, SELFPAY ==
[2020-09-11 17:27] VITALS: BMI 26.4
--- NOTE | 2024-10-28 13:48 | DI.NM.S_ITS ---
PROCEDURE: NM PANDA PERF SPECT R&S PHARM Rest and pharmacological stress myocardial perfusion SPECT with gated imaging and ejection fraction RADIOPHARMACEUTICAL: 26 mCi Tc-99m tetrafosmin IV at rest and 25.4 mCi Tc-99m tetrafosmin IV at peak effect of pharmacological stress. [id number] was performed. INDICATIONS: CAD PQRS ATTESTATIONS: Measure 322 - Is this imaging test primarily performed on a low-risk surgery patient for preoperative evaluation within 30 days preceding their low-risk non-cardiac surgery? Low-risk surgery is defined as cardiac or myocardial infarction less than 1%, including (but not limited to) endoscopic procedures, superficial procedures, cataract surgery, and excisional breast surgery: Answer: No Measure 323 - Is this imaging test performed primarily for the monitoring of an asymptomatic patient who had percutaneous coronary intervention on the visit date or within 2 years of the visit date? Answer: No Measure 324 - Is this imaging test performed primarily for the initial detection and risk assessment on an asymptomatic, low coronary heart disease patient? Low CHD risk definition = clinicians should consider the maximum number of available patient factors used to estimate risk based on [place] (ATP III criteria), typically age, gender, diabetes, smoking status, and use of blood pressure medication, and integrate age appropriate estimates for missing elements, such as LDL or standard blood pressure. Answer: No TECHNIQUE: Radiopharmaceutical was injected at peak stress test, and also at rest. SPECT images were obtained. SPECT myocardial perfusion images were displayed in short axis, horizontal long axis, and vertical long axis views. Gated images were reviewed using TwoFish[employer]ANT software. COMPARISON: None. CARDIAC STRESS: A pharmacologic stress test was performed under the supervision of an attending staff, using an infusion of 0.4 mg of Lexiscan. Hemodynamic data: There is normal blood pressure and heart rate response to pharmacologic stress. Symptoms: The patient denied anginal chest pain. Aminophylline: None EKG: No diagnostic changes of ischemia; no ectopy. FINDINGS: Raw data: There is good myocardial uptake of radiotracer. No significant motion artifacts. [id number]-[id number] ratio is 0.47 (normal is less than 0.38 for tetrafosmin tracer). Left ventricle function: Gated images demonstrate normal left ventricular wall thickening. No segmental wall motion abnormalities. No transient ischemic dilation; TID is 0.88 (normal less than 1.3). Left ventricle resting end diastolic volume is 48 mL. Left ventricle stress ejection fraction is 96%; normal range is above 45%. Myocardial perfusion: There is normal distribution of activity in the right and left ventricular myocardium. No fixed or reversible perfusion defects. Increased subdiaphragmatic activity noted. IMPRESSION: 1. Negative Lexiscan myocardial perfusion scan for ischemia and infarction. 2. No changes when compared with previous myocardial perfusion scan. Dictated by: Mario March M.D. on 11/11/2024 at 16:45 Approved by: Mario March M.D. on 11/11/2024 at 16:46
== END ==
PROVIDERS: PCP Family Medicine; Referring Provider Internal Medicine Cardiovascular Disease; Visit Provider Internal Medicine Cardiovascular Disease
DX: I25.10 Atherosclerotic heart disease of native coronary artery without angina pectoris (principal)
CPT/HCPCS: 78452; 93017; A9502; J2785

== ENCOUNTER → 2025-01-04 12:20 | Outpatient (CLI) | payer MEDICARE, OTHER, SELFPAY ==
[2020-09-11 17:27] VITALS: BMI 26.4
[2025-01-04 12:55] LABS: Add Manual Diff / Slide Review NO; Hematocrit 33.5 % (36-46); Hemoglobin 11.6 g/dL (12.0-16.0); Lymphocytes Absolute Auto 2200 /uL (1100-4500); Mean Corpuscular HGB Conc 34.7 % (30-36); Mean Corpuscular Hemoglobin 33.4 PG (26-34); Mean Corpuscular Volume 96.1 fL (80-100); Platelet Count 258 X10^3/uL (150-400)
[2025-01-04 13:14] LABS: Alanine Aminotransferase 16 IU/L (<35); Albumin 4.0 g/dL (3.5-5.0); Albumin Globulin Ratio 1.5 (1.0-2.8); Alkaline Phosphatase 84 U/L (38-126); Blood Urea Nitrogen 8 mg/dL (7-17); Calcium 9.3 mg/dL (8.4-10.2); Carbon Dioxide 28 mmol/L (22-32); Chloride 97 mmol/L (98-107); Cholesterol 160 mg/dL (140-199); Estimated Glomerular Filt Rate 55 mL/min (>60); Globulin 2.7 g/dL (1.7-4.1); Glucose 95 mg/dL (70-99); HDL Cholesterol 82 mg/dL (40-60); HEMOLYSIS < 15 (0-50); Potassium 4.4 mmol/L (3.4-5.1); Sodium 130 mmol/L (137-145); Total Protein 6.7 g/dL (6.3-8.2); Triglycerides 82 mg/dL (35-150)
== END ==
PROVIDERS: PCP Family Medicine; Referring Provider Internal Medicine Cardiovascular Disease; Visit Provider Internal Medicine Cardiovascular Disease
DX: E78.5 Hyperlipidemia, unspecified (principal); I10 Essential (primary) hypertension; I25.10 Atherosclerotic heart disease of native coronary artery without angina pectoris
CPT/HCPCS: 36415; 80053; 80061; 85025

== ENCOUNTER → 2025-03-01 11:34 | Outpatient (CLI) | payer MEDICARE, OTHER, SELFPAY ==
[2020-09-11 17:27] VITALS: BMI 26.4
[2025-03-01 12:09] LABS: Add Manual Diff / Slide Review NO; Hematocrit 31.1 % (36-46); Hemoglobin 10.7 g/dL (12.0-16.0); Lymphocytes Absolute Auto 1400 /uL (1100-4500); Mean Corpuscular HGB Conc 34.5 % (30-36); Mean Corpuscular Hemoglobin 33.2 PG (26-34); Mean Corpuscular Volume 96.4 fL (80-100); Platelet Count 254 X10^3/uL (150-400)
[2025-03-01 12:48] LABS: HEMOLYSIS 22 (0-50); Iron 86 ug/dL (37-170)
[2025-03-01 12:51] LABS: Alanine Aminotransferase 13 IU/L (<35); Albumin 3.4 g/dL (3.5-5.0); Albumin Globulin Ratio 1.3 (1.0-2.8); Alkaline Phosphatase 82 U/L (38-126); Blood Urea Nitrogen 9 mg/dL (7-17); Calcium 9.0 mg/dL (8.4-10.2); Carbon Dioxide 28 mmol/L (22-32); Chloride 97 mmol/L (98-107); Estimated Glomerular Filt Rate > 60 mL/min (>60); Globulin 2.7 g/dL (1.7-4.1); Glucose 98 mg/dL (70-99); HEMOLYSIS < 15 (0-50); Potassium 4.2 mmol/L (3.4-5.1); Sodium 130 mmol/L (137-145); Total Protein 6.1 g/dL (6.3-8.2)
[2025-03-01 13:01] LABS: Percent Iron Saturation 44 % (15-50); Total Iron Binding Capacity 197 ug/dL (265-497); Transferrin 152 mg/dL (206-381)
[2025-03-03 13:11] LABS: Albumin 3.1 g/dL (2.9-4.4); Alpha-1-Globulin 0.2 g/dL (0.0-0.4); Alpha-2-Globulin 0.7 g/dL (0.4-1.0); Gamma Globulin 1.0 g/dL (0.4-1.8)
[2025-03-03 14:40] LABS: Free Kappa Lt Chains, Serum 31.1 mg/L (3.3-19.4); Free Lambda Lt Chains,Serum 20.2 mg/L (5.7-26.3)
[2025-03-04 12:12] LABS: Alpha-1 Globulin, Ur 4.4 % (.)
== END ==
PROVIDERS: PCP Family Medicine; Referring Provider Family Medicine; Visit Provider Family Medicine
DX: R76.8 Other specified abnormal immunological findings in serum (principal); D64.9 Anemia, unspecified; D63.8 Anemia in other chronic diseases classified elsewhere; I10 Essential (primary) hypertension
CPT/HCPCS: 36415; 80053; 83540; 83550; 83883; 84155; 84156; 84165; 84166; 85025

== ENCOUNTER → 2025-04-12 10:52 | Outpatient (CLI) | payer MEDICARE, OTHER, SELFPAY ==
[2020-09-11 17:27] VITALS: BMI 26.4
--- NOTE | 2025-04-12 11:15 | DI.CT.S_ITS ---
PROCEDURE: CT CHEST WO CON INDICATIONS: Mass of left lung; hyperlipidemia; hypertension TECHNIQUE: Noncontrast 5 mm thick sections acquired from the pulmonary apices to the posterior costophrenic angles. 1 mm lung window, 5 mm thick coronal and sagittal and 7 mm axial MIP reformats were then acquired. For radiation dose reduction, the following was used: automated exposure control, adjustment of mA and/or kV according to patient size. COMPARISON: [facility], CT, CT CHEST WO CON, 11/08/2021, 9:26. FINDINGS: Image quality: Diagnostic. Area peribronchial thickening, mild bronchiectasis, pleural-parenchymal scarring and opacification in the left upper lobe anterior-medially (series 3, images 110-119 measuring up to 9 millimeters maximally previously 1.2 cm likely postinflammatory without enlarging or new nodule. Several clustered nodules in the left upper lobe anterior old laterally (series 3, image 108 measuring up to 6 millimeters decreased from the prior exam previously measured up to 1.2 cm. Other 6 millimeter nodule left upper lobe anterior-medially (sees series 3, image 98 decreased from the prior exam approximately 1.5 cm. 1.2 cm ground- glass opacity right upper lobe anteriorly (series 3, image 46) new. Mild bilateral perihilar and lower lobe peribronchial thickening, some of which may be related expiratory result; however, bronchitis, viral infection, asthma or other process should be considered. Moderate calcifications of the coronary arteries and to a lesser degree aortic arch, aortic annulus unchanged. Moderate to severe degenerative changes of the thoracic spine with disc space narrowing, osteophytes, costovertebral and facet hypertrophic changes, multilevel anterior bridging osteophytes progressed compared to the prior exam with new mild decreased height, compression fractures age indeterminate but likely chronic of the T8, T10, L1. Vertebra plana compression fracture T12 progressed. Lower Neck: No enlarged lymph nodes. Thyroid: No thyroid nodules which require sonographic follow up, per consensus guidelines. Axillae: No enlarged lymph nodes. Chest Wall: Unremarkable. Bones: Unremarkable. Lungs and Pleura: No pneumothorax or pleural effusions. No consolidation. Heart: Heart size is normal. No pericardial effusion. Thoracic Vessels: The aorta and pulmonary arteries demonstrate normal size. Mediastinum and Liv: No enlarged lymph nodes. Upper Abdomen: Status post cholecystectomy. Mild hiatal hernia. Postprandial appearance of the stomach moderately distended with air-fluid level. IMPRESSION: Left upper lobe lung nodules decreased in size compared to the prior exam. Right upper lobe ground-glass opacity is new may commonly be infectious/inflammatory. Peribronchial thickening and patchy opacities as discussed above. Other findings as above. Follow-up suggested. Dictated by: Jeancarlos Mariano M.D. on 04/14/2025 at 12:21 Approved by: Jeancarlos Mariano M.D. on 04/14/2025 at 12:40
== END ==
LOC: CT 10:53
PROVIDERS: PCP Family Medicine; Referring Provider Family Medicine; Visit Provider Family Medicine
DX: I25.10 Atherosclerotic heart disease of native coronary artery without angina pectoris (principal); K44.9 Diaphragmatic hernia without obstruction or gangrene; R91.8 Other nonspecific abnormal finding of lung field; E78.5 Hyperlipidemia, unspecified; M47.814 Spondylosis without myelopathy or radiculopathy, thoracic region; I10 Essential (primary) hypertension; M81.0 Age-related osteoporosis without current pathological fracture; Z95.5 Presence of coronary angioplasty implant and graft; Z90.49 Acquired absence of other specified parts of digestive tract
CPT/HCPCS: 71250

== ENCOUNTER → 2025-05-31 15:12 | Outpatient (CLI) | payer MEDICARE, OTHER, SELFPAY ==
[2020-09-11 17:27] VITALS: BMI 26.4
[2025-05-31 16:46] LABS: Add Manual Diff / Slide Review NO; Hematocrit 30.6 % (36-46); Hemoglobin 10.4 g/dL (12.0-16.0); Lymphocytes Absolute Auto 1500 /uL (1100-4500); Mean Corpuscular HGB Conc 34.1 % (30-36); Mean Corpuscular Hemoglobin 32.3 PG (26-34); Mean Corpuscular Volume 94.6 fL (80-100); Platelet Count 129 X10^3/uL (150-400)
[2025-05-31 17:04] LABS: Alanine Aminotransferase 15 IU/L (<35); Albumin 2.8 g/dL (3.5-5.0); Albumin Globulin Ratio 1.0 (1.0-2.8); Alkaline Phosphatase 81 U/L (38-126); Blood Urea Nitrogen 11 mg/dL (7-17); Calcium 8.6 mg/dL (8.4-10.2); Carbon Dioxide 27 mmol/L (22-32); Chloride 99 mmol/L (98-107); Estimated Glomerular Filt Rate 55 mL/min (>60); Globulin 2.7 g/dL (1.7-4.1); Glucose 100 mg/dL (70-99); HEMOLYSIS < 15 (0-50); Potassium 4.2 mmol/L (3.4-5.1); Sodium 132 mmol/L (137-145); Total Protein 5.5 g/dL (6.3-8.2)
[2025-05-31 17:17] LABS: NT-proBNP (BNP-Adult 18+) 899 pg/mL (<450)
== END ==
PROVIDERS: PCP Family Medicine; Referring Provider Physician Assistant; Visit Provider Physician Assistant
DX: R60.0 Localized edema (principal)
CPT/HCPCS: 36415; 80053; 83880; 85025

== ENCOUNTER 2025-06-07 13:21 | Emergency (ER) | payer MEDICARE, OTHER, SELFPAY ==
[2020-09-11 17:27] VITALS: BMI 26.4
--- OUTSIDE RECORDS SUMMARY | 2025-06-07 13:24 | XMS_ITS | Encounter Summary ---
Author Organization [facility] Address [address] [place] [address] Care Team Providers Care Human Resources Operations Coordinator Name Role Phone Maury Cárdenas MD Primary Care Provider [phone] Encounter Details Date Type Department Care Team ([facility] Contact Info) Description 01/15/2023 Abstract [facility] Health Information Management [address] [place] [address] [phone] [facility] Coordinator, Provider, Social History Tobacco Use Types Packs/Day Years Used Date Smoking Tobacco: Former Cigarettes 2 5 0 06/09/1959 - 06/09/1964 Smokeless Tobacco: Never Alcohol Use Standard Drinks/Week Comments Yes 1 (1 standard drink = 0.6 oz pur e alcohol) 2 glasses of wine Comments Unknown Sex and Gender Information Value Date Recorded Sex Assigned at Not on file Legal Sex Female 7:52 PM PDT Gender Identity Not on file Sexual Orientation Not on file documented as of this encounter Plan of Treatment Upcoming Encounters Date Type Department Care Team ([facility] Contact Info) Description 08/11/2025 10:00 AM PST Office Visit [facility] [address], [place] [phone] Reyes Nguyễn MD [address] [place] [address] [phone] documented as of this encounter Procedures Procedure Name Priority Date/Time Associated Diagnosis Comments LIPID PANEL Routine 01/15/2023 documented in this encounter Results * Lipid panel (01/15/2023) External LDL Cholesterol 56 mg/dL Blood Venous blood / Unknown Narrative Resulting Agency Comment us Ordering Provider LAB BLOOD ORDERABLES Final Res ult documented in this encounter Visit Diagnoses Not on filedocumented in this encounter Care Teams Human Resources Operations Coordinator Relationship Specialty Start Date End Date Maury Cárdenas MD [address] [place] [id number] PCP - General Family Medicine 01/21/25 documented as of this encounter
--- NOTE | 2025-06-07 14:07 | DI.RAD.S_ITS ---
PROCEDURE: XR CHEST 1V INDICATIONS: Chest Pain TECHNIQUE: One view of the chest was acquired. COMPARISON: [facility], CR, XR CHEST 2V, 11/15/2022, 11:28. FINDINGS AND IMPRESSION: No dense airspace disease or pleural effusion on this single view study. Normal heart size. Degenerative osseous changes. Dictated by: Vitor Ortiz M.D. on 06/07/2025 at 15:18 Approved by: Vitor Ortiz M.D. on 06/07/2025 at 15:19
[2025-06-07 14:11] VITALS: BP 127/58; PULSE 76; RESP 16; TEMP 37.1; O2SAT 97; BMI 20.5
[2025-06-07 14:32] LABS: Add Manual Diff / Slide Review NO; Hematocrit 29.3 % (36-46); Hemoglobin 9.9 g/dL (12.0-16.0); Lymphocytes Absolute Auto 1400 /uL (1100-4500); Mean Corpuscular HGB Conc 33.9 % (30-36); Mean Corpuscular Hemoglobin 32.0 PG (26-34); Mean Corpuscular Volume 94.3 fL (80-100); Platelet Count 232 X10^3/uL (150-400)
[2025-06-07 14:33] LABS: INR 1.0 (0.9-1.3); Prothrombin Time 11.1 SECONDS (9.4-12.5)
[2025-06-07 14:36] LABS: PTT Partial Thromboplastin Tim 28 SECONDS (25.1-36.5)
[2025-06-07 14:38] LABS: Alanine Aminotransferase 17 IU/L (<35); Albumin 3.0 g/dL (3.5-5.0); Albumin Globulin Ratio 1.1 (1.0-2.8); Alkaline Phosphatase 91 U/L (38-126); Blood Urea Nitrogen 13 mg/dL (7-17); Calcium 8.2 mg/dL (8.4-10.2); Carbon Dioxide 28 mmol/L (22-32); Chloride 98 mmol/L (98-107); Creatine Kinase 23 U/L (30-135); Estimated Glomerular Filt Rate 59 mL/min (>60); Globulin 2.7 g/dL (1.7-4.1); Glucose 92 mg/dL (70-99); HEMOLYSIS < 15 (0-50); Lipase 122 U/L (23-300); Magnesium 1.8 mg/dL (1.6-2.3); Potassium 3.7 mmol/L (3.4-5.1); Sodium 130 mmol/L (137-145); Total Protein 5.7 g/dL (6.3-8.2)
[2025-06-07 14:50] LABS: NT-proBNP (BNP-Adult 18+) 954 pg/mL (<450); Troponin I < 0.012 ng/mL (0.01-0.034)
--- NOTE | 2025-06-07 16:15 | ED.WEAKNESS ---
HPI - Weakness General Chief complaint: Weakness Stated complaint: Both feet and ankle pain/ swollen Time Seen by Provider: 06/07/25 16:15 Source: patient Mode of arrival: Family Vehicle History of Present Illness HPI Narrative: 80-year-old female history of CAD times stent placed, prior hip placement, hypertension, dyslipidemia, venous insufficiency of both lower extremity, presents with bilateral leg swelling over the last few weeks recently started on a diuretic for which she only started 1 dose. She has increased leg swelling and pain on the left leg compared to the right denies any chest pain, shortness of breath, dyspnea on exertion, fever, chills, trauma to the area. Nothing makes it better or worse. She ambulates with a walker any recent falls. Other than what is stated 14 point review of systems negative. Related Data Home Medications ?Medication ?Instructions ?Recorded ?Confirmed aspirin 81 mg chewable tablet 81 mg PO DAILY ##0 06/15/12 05/31/25 cholecalciferol (vitamin D3) 50 50 mcg PO DAILY 09/12/20 05/31/25 mcg (2,000 unit) capsule (Vitamin D3) ascorbate calcium (vitamin C) PO 11/11/24 05/31/25 fluticasone propionate 50 2 spray intranasal DAILY 11/11/24 05/31/25 mcg/actuation nasal spray,suspension hydrocortisone-pramoxine 2.5 %-1 % 1 applic MN DAILY PRN 11/11/24 05/31/25 rectal cream metronidazole 0.75 % lotion 1 applic topical DAILY 11/11/24 05/31/25 nitroglycerin 0.4 mg sublingual 0.4 mg sublingual Q5M PRN 11/11/24 05/31/25 tablet carvedilol 3.125 mg tablet 3.125 mg PO BID 05/31/25 05/31/25 Previous Rx's ?Medication ?Instructions ?Recorded Disabled Parking Permit #1 ea 07/07/20 Disabled Parking Permit #1 ea 11/11/24 lorazepam 0.5 mg tablet (Ativan) 0.5 mg PO BID PRN anxiety #30 tabs 11/11/24 rosuvastatin 40 mg tablet (Crestor) 40 mg PO QDAY #90 tabs 03/01/25 furosemide 20 mg tablet (Lasix) 20 mg PO QAM #14 tabs 06/01/25 potassium chloride 10 mEq 10 meq PO DAILY #14 caps 06/01/25 capsule,extended release Allergies Allergy/AdvReac Type Severity Reaction Status Date / Time bee venom protein (honey bee) Allergy Severe Swelling Verified 06/07/25 14:10 hydromorphone Allergy Severe [place] like Verified 06/07/25 14:10 I was having a heart attack adhesive tape Allergy Mild Verified 06/07/25 14:10 azithromycin (AZITHROMYCIN) Allergy Unknown Verified 06/07/25 14:10 codeine (CODEINE) Allergy Unknown Verified 06/07/25 14:10 morphine Allergy Verified 06/07/25 14:10 Review of Systems Review of Systems ROS Unobtainable: All systems reviewed & are unremarkable except as noted in HPI and below Patient History Medical History (Updated 06/07/25 @ 18:28 by Kristian Darby DO) Peripheral edema Pulmonary lesion Anemia Lymph node enlargement Mass of left lung Post-menopause Venous insufficiency of both lower extremities CAD (coronary artery disease) Osteoarthritis Hyperlipidemia HTN (hypertension) Surgical History (Updated 07/26/21 @ 13:02 by Trevor Darby MD) Hx of heart artery stent Status post total hip replacement, right Family History (Updated 09/11/20 @ 22:53 by NAVEEN Orr) Father Heart attack Mother Cancer Brother History of kidney transplant Sister Heart attack Sister Cancer Social History household members: none Smoking Status: Former smoker Smoking Status: Former smoker tobacco type: cigarettes alcohol intake frequency: 0-2 drinks per day Alcohol type: wine Exam Narrative Exam Narrative: GENERAL: [85 year old patient appears stated age. Well-developed patient, in mild distress. HEAD: Atraumatic. Normocephalic. EYES: Pupils equal round and reactive. Extraocular motions intact. No scleral icterus. No injection or drainage. ENT: Nose without bleeding, purulent drainage. Throat without erythema, tonsillar hypertrophy or exudate. Airway patent. NECK: Trachea midline. Non tender CARDIOVASCULAR: Regular rate and rhythm without murmurs, gallops, or rubs. RESPIRATORY: Clear to auscultation. Breath sounds equal bilaterally. No wheezes, rales, or rhonchi. GASTROINTESTINAL: Abdomen soft, non-tender, nondistended. EXTREMITIES: Bilateral pitting edema +1 pretibial, motor sensory intact +2 DP +2 PT cap refill less than 2 seconds. Left calf girth increased tenderness to palpation compared to right BACK: Nontender without deformity or crepitance. No flank tenderness. NEURO: AOx3. SKIN: No rash or erythema of visible areas Initial Vital Signs Initial Vital Signs: Vital Signs Temperature 98.7 F 06/07/25 14:11 Pulse Rate 76 06/07/25 14:11 Respiratory Rate 16 06/07/25 14:11 Blood Pressure 127/58 L 06/07/25 14:11 Pulse Oximetry 97 06/07/25 14:11 Oxygen Delivery Method Room Air 06/07/25 14:11 Course Orders Ordered: ED Orders 06/07/25 14:07 XR chest 1V Stat EKG-12 Lead Stat 06/07/25 14:18 Complete Blood Count AUTO DIFF Stat Comprehensive Metabolic Panel Stat Lipase Stat Magnesium Stat NT-proBNP (BNP-Adult 18+) Stat PTT Partial Thromboplastin Elijah Stat Prothrombin Time INR Stat Troponin & CK Cardiac Panel Stat 06/07/25 16:21 US periph venous low extrem bi Stat Discontinued Medications Furosemide (Furosemide 40 Mg/4 Ml Vial) 40 mg IV NOW ONE Stop: 06/07/25 16:25 Vital Signs Vital signs: Vital Signs - 8 hr 06/07/25 14:11 Temperature 98.7 F Pulse Rate 76 Respiratory Rate 16 Blood Pressure 127/58 L Pulse Oximetry 97 Oxygen Delivery Method Room Air MDM - Weakness Lab Data 06/07/25 14:18 06/07/25 14:18 Labs: Lab Results 06/07/25 Range/Units 14:18 WBC 7.2 (4.5-11.0) X10^3/uL RBC 3.11 L (4.0-5.2) X10^6/uL Hgb 9.9 L (12.0-16.0) g/dL Hct 29.3 L (36-46) % MCV 94.3 (80-100) fL MCH 32.0 (26-34) PG MCHC 33.9 (30-36) % RDW 13.4 (11.6-14.8) % Plt Count 232 (150-400) X10^3/uL Neut % (Auto) 68.9 (50-75) % Lymph % (Auto) 19.9 L (25-40) % [place] % (Auto) 9.2 (3-14) % Eos % (Auto) 0.9 L (2-4) % Baso % (Auto) 1.1 (0-2) % Neut # (Auto) 5000 (9086-5177) /uL Lymph # (Auto) 1400 (1780-3582) /uL [place] # (Auto) 700 (0-900) /uL Eos # (Auto) 100 (0-450) /uL Baso # (Auto) 100 (0-100) /uL PT 11.1 (9.4-12.5) SECONDS INR 1.0 (0.9-1.3) APTT 28 (25.1-36.5) SECONDS Sodium 130 L (137-145) mmol/L Potassium 3.7 (3.4-5.1) mmol/L Chloride 98 (98-107) mmol/L Carbon Dioxide 28 (22-32) mmol/L BUN 13 (7-17) mg/dL Creatinine 0.95 (0.52-1.04) mg/dL Estimated GFR 59 L (>60) mL/min BUN/Creatinine Ratio 13.7 (6-22) Glucose 92 (70-99) mg/dL Calcium 8.2 L (8.4-10.2) mg/dL Magnesium 1.8 (1.6-2.3) mg/dL Total Bilirubin 0.5 (0.2-1.3) mg/dL AST 34 (14-36) IU/L ALT 17 (<35) IU/L Alkaline Phosphatase 91 (38-126) U/L Total Creatine Kinase 23 L (30-135) U/L Troponin I < 0.012 (0.01-0.034) ng/mL NT-Pro-B Natriuret Pep 954 H (<450) pg/mL Total Protein 5.7 L (6.3-8.2) g/dL Albumin 3.0 L (3.5-5.0) g/dL Globulin 2.7 (1.7-4.1) g/dL Albumin/Globulin Ratio 1.1 (1.0-2.8) Lipase 122 (23-300) U/L Imaging Data Chest x-ray: Radiologist Impression: [address] [address] XRay Report Signed Patient: Meka Shahid MR#: [id number] : 1940 Acct:[id number] Age/Sex: 85 / F Date of Service: 06/07/25 Loc: ED Accession Number: [id number] Procedure: XR chest 1V Ordering Provider: Alyx Orr D.O. PROCEDURE: XR CHEST 1V INDICATIONS: Chest Pain TECHNIQUE: One view of the chest was acquired. COMPARISON: [facility], CR, XR CHEST 2V, 11/15/2022, 11:28. FINDINGS AND IMPRESSION: No dense airspace disease or pleural effusion on this single view study. Normal heart size. Degenerative osseous changes. Dictated by: Vitor Ortiz M.D. on 06/07/2025 at 15:18 US - DVT: Radiologist Impression: [place] [address] Ultrasound Report Signed Patient: Meka Shahid MR#: [id number] : 1940 Acct:[id number] Age/Sex: 85 / F Date of Service: 06/07/25 Loc: ED Accession Number: [id number] Procedure: US periph venous low extrem bi Ordering Provider: Kristian Darby D.O. PROCEDURE: US PERIPH VENOUS LOW EXTREM BI INDICATIONS: BILATERAL SWELLING TECHNIQUE: Real-time imaging, as well as color and pulse Doppler interrogation, were performed of the deep veins of both legs from the inguinal ligament to the popliteal fossa, with documentation of the visualized calf veins. COMPARISON: None. FINDINGS: Right: The common femoral, femoral, popliteal, and the visualized calf veins are normally compressible, and free of intraluminal thrombus. Color and pulse Doppler demonstrate normal phasic intravascular flow. There is normal augmentation response to distal compression maneuver. Left: The common femoral, femoral, popliteal, and the visualized calf veins are normally compressible, and free of intraluminal thrombus. Color and pulse Doppler demonstrate normal phasic intravascular flow. There is normal augmentation response to distal compression maneuver. IMPRESSION: No findings of deep venous thrombosis in either lower extremity. Dictated by: Jf Price M.D. on 06/07/2025 at 18:30 Approved by: Jf Price M.D. on 06/07/2025 at 18:30 MDM Narrative Medical decision making narrative: All lab work, vital signs, nurse triage note, medication list, previous ER visits, and all imaging studies reviewed. W BC 7.2 hemoglobin 9.9 platelets 230 sodium 130 seen 3.7 chloride 98 CO2 20 BUN 13 creatinine 0.95 glucose 92 magnesium 1.8 LFTs normal troponin less than 0.012 BNP 954. Chest x-ray showed no acute process degenerative osseous changes normal heart size no dense airspace disease or pleural effusion on the single view study. Patient given Lasix 40 mg here. She has prescription Lasix at home. Ultrasound showed no DVT. Differential diagnosis DVTs, superficial thrombophlebitis, electrolyte derangement, CHF Discharge Plan Departure Patient Disposition: Home Clinical Impression: Localized swelling of both lower legs Prescriptions: No Action aspirin 81 mg Tablet,Chewable 81 mg PO DAILY Qty: 0 (DME) Disabled Parking Permit See Rx Instructions .ROUTE .MEDSUPPLY Qty: 1 0RF Rx Instructions: Valid for 5 years hydrocortisone-pramoxine 2.5-1 % cream 1 applic MN DAILY PRN metronidazole 0.75 % lotion 1 applic topical DAILY nitroglycerin 0.4 mg tablet, sublingual 0.4 mg sublingual Q5M PRN Rx Instructions: do not exceed 3 doses per episode fluticasone propionate 50 mcg/actuation spray,suspension 2 spray intranasal DAILY Rx Instructions: administer into each nostril ascorbate calcium (vitamin C) PO lorazepam [Ativan] 0.5 mg tablet 0.5 mg PO BID PRN (Reason: anxiety) Qty: 30 2RF (DME) Disabled Parking Permit See Rx Instructions .ROUTE .MEDSUPPLY Qty: 1 0RF Rx Instructions: I find this patient to be medically disabled and qualified for Disabled Parking as indicated and signed on the accompanying Disabled Parking Application for Individuals. carvedilol 3.125 mg tablet 3.125 mg PO BID potassium chloride 10 mEq capsule, extended release 10 meq PO DAILY Qty: 14 0RF Rx Instructions: take with lasix furosemide [Lasix] 20 mg tablet 20 mg PO QAM Qty: 14 0RF rosuvastatin [Crestor] 40 mg tablet 40 mg PO QDAY Qty: 90 3RF cholecalciferol (vitamin D3) [Vitamin D3] 50 mcg (2,000 unit) Capsule 50 mcg PO DAILY Referrals: Maury Cárdenas MD [Primary Care Provider, Family Practice] Stand Alone Forms: Patient Portal/API
--- NOTE | 2025-06-07 16:21 | DI.US.S_ITS ---
PROCEDURE: US PERIPH VENOUS LOW EXTREM BI INDICATIONS: BILATERAL SWELLING TECHNIQUE: Real-time imaging, as well as color and pulse Doppler interrogation, were performed of the deep veins of both legs from the inguinal ligament to the popliteal fossa, with documentation of the visualized calf veins. COMPARISON: None. FINDINGS: Right: The common femoral, femoral, popliteal, and the visualized calf veins are normally compressible, and free of intraluminal thrombus. Color and pulse Doppler demonstrate normal phasic intravascular flow. There is normal augmentation response to distal compression maneuver. Left: The common femoral, femoral, popliteal, and the visualized calf veins are normally compressible, and free of intraluminal thrombus. Color and pulse Doppler demonstrate normal phasic intravascular flow. There is normal augmentation response to distal compression maneuver. IMPRESSION: No findings of deep venous thrombosis in either lower extremity. Dictated by: Jf Price M.D. on 06/07/2025 at 18:30 Approved by: Jf Price M.D. on 06/07/2025 at 18:30
[2025-06-07] MEDS: FUROSEMIDE 40 MG TABLET PO (18:46)
== END 2025-06-07 18:55 | disposition home or self-care (01) ==
PROVIDERS: Emergency Medicine; Emergency Provider Family Medicine; PCP Family Medicine
DX: R22.43 Localized swelling, mass and lump, lower limb, bilateral (principal); M25.572 Pain in left ankle and joints of left foot; M25.571 Pain in right ankle and joints of right foot
CPT/HCPCS: 36415; 71045; 80053; 82550; 83690; 83735; 83880; 84484; 85025; 85610; 85730; 93970; 99283; 99284